=== PATIENT | female | born 1990 | race African-American/Black ===

== ENCOUNTER 2016-05-20 09:23 | Emergency (ER) | payer BC ==
--- NOTE | 2016-05-20 10:23 | ER Document Report ---
ED Oral Problem - General Mode of Arrival: Ambulatory Information source: Patient TRAVEL OUTSIDE OF THE [place] IN LAST 30 DAYS: No - HPI Patient complains to provider of: Swelling of face Onset: This morning Quality of pain: Achy Context: Fractured tooth Associated symptoms: None - General Chief Complaint: Facial Swelling Stated Complaint: FACIAL SWELLING Notes: Patient is a 26 year old female that presents to the emergency department today with complaints of right sided facial swelling. Patient states she woke up this morning and noticed the swelling. Patient states she believes she may have a bad tooth. Patient states she is not having difficulty handling her secretions and she is able to swallow without difficulty. (GIANFRANCO ATKINS) - Related Data Allergies/Adverse Reactions: hydrocodone bitartrate [From Vicodin] Allergy (Verified 05/20/16 09:24) Past Medical History - General Information source: Patient - Social History Smoking Status: Current Every Day Smoker Cigarette use (# per day): Yes Frequency of alcohol use: Occasional Drug Abuse: None Lives with: Parents Family History: Arthritis, CVA, DM, Hypertension Patient has suicidal ideation: No Patient has homicidal ideation: No Musculoskeltal Medical History: Reports Hx Musculoskeletal Deformity, Reports Hx Musculoskeletal Trauma Skin Medical History: Reports Hx Cellulitis Surgical Hx: Negative - Immunizations Immunizations up to date: Yes Hx Diphtheria, Pertussis, Tetanus Vaccination: Yes Review of Systems - Review of Systems Constitutional: denies: Fever EENT: See HPI, Mouth pain, Mouth swelling, Dental problem. denies: Difficulty swallowing Cardiovascular: No symptoms reported Respiratory: No symptoms reported Gastrointestinal: No symptoms reported Genitourinary: No symptoms reported Female Genitourinary: No symptoms reported Musculoskeletal: No symptoms reported Skin: No symptoms reported Hematologic/Lymphatic: No symptoms reported Neurological/Psychological: No symptoms reported -: Yes All other systems reviewed and negative Physical Exam - General General appearance: Appears well, Alert In distress: None - HEENT Head: Normocephalic, Atraumatic Eyes: Normal Conjunctiva: Normal Extraocular movements intact: Yes Teeth diagram: 1 - Fractured teeth #2-3, pain with palpation with surrounding erythema and swelling Pharynx: No: Peritonsillar abscess, Retropharyngeal abscess, Potential airway comprom. - Respiratory Respiratory status: No respiratory distress - Cardiovascular Rhythm: Regular - Abdominal Inspection: Normal Distension: No distension - Extremities General upper extremity: Normal inspection, Nontender. No: Edema General lower extremity: Normal inspection, Nontender. No: Edema - Neurological Neuro grossly intact: Yes Cognition: Normal Orientation: AAOx4 Speech: Normal - Psychological Associated symptoms: Normal affect, Normal mood - Skin Skin Temperature: Warm Skin Moisture: Dry Skin Color: Normal - Vital signs Vitals: Temp Pulse Resp BP Pulse Ox 98.8 F 85 18 148/101 H 100 05/20/16 09:28 05/20/16 09:28 05/20/16 09:28 05/20/16 09:28 05/20/16 09:28 (LISANDRO FINNEY) (GIANFRANCO ATKINS) Course - Re-evaluation Re-evalutation: 05/20/16 10:24 The right upper first and second molars are severely decayed and broken off up above the gumline. The right upper second molar is quite tender to percuss. There is some swelling of the gum around these were decayed and broken off teeth. There is no sign of abscess. The right maxillary face is swollen, a little indurated and tender to palpate. There is no palpable abscess. (LISANDRO FINNEY) - Vital Signs Vital signs: Temp Pulse Resp BP Pulse Ox 97.3 F 77 16 124/63 100 05/20/16 10:34 05/20/16 10:34 05/20/16 10:34 05/20/16 10:34 05/20/16 10:34 (LISANDRO FINNEY) (GIANFRANCO ATKINS) Scribe Documentation - Scribe Written by Scribe:: Sam Em, 05/20/16 1103 acting as scribe for :: [employer]
[2016-05-20 10:37] VITALS: BP 124/63
== END 2016-05-20 10:37 | disposition home or self-care (01) ==
LOC: ER 09:23
DX: K04.7 Periapical abscess without sinus (principal); K02.9 Dental caries, unspecified; F17.210 Nicotine dependence, cigarettes, uncomplicated
CPT/HCPCS: 99283

== ENCOUNTER 2016-10-14 11:53 | Emergency (ER) | payer BC ==
--- NOTE | 2016-10-14 12:30 | ER Document Report ---
ED Medical Screen (RME) - General Chief Complaint: Headache Stated Complaint: HEADACHE Time Seen by Provider: 10/14/16 12:17 Notes: Is a 26-year-old female presenting to the emergency department for a headache, dizziness, and toothache. Patient states her headache started Thursday at 15:00. Patient states her headache was worse yesterday morning when she go up and has continued into today. Patient states she got very dizzy at work and she had a nose bleed from her left nostril. Patient states it is very unusual for her to get a headache and that this headache is very severe. Patient states her head hurts in her neck, eyes, and all over her head. Patient also has some photophobia. Patient also has pain to her teeth on the left side. I have greeted and performed a rapid initial assessment of this patient. A comprehensive ED assessment and evaluation of the patient, analysis of test results and completion of the medical decision making process will be conducted by additional ED providers. TRAVEL OUTSIDE OF THE [place] IN LAST 30 DAYS: No - Related Data Allergies/Adverse Reactions: hydrocodone bitartrate [From Vicodin] Allergy (Verified 10/14/16 12:12) Past Medical History Renal/ Medical History: Denies: Hx Peritoneal Dialysis Musculoskeltal Medical History: Reports Hx Musculoskeletal Deformity, Reports Hx Musculoskeletal Trauma Skin Medical History: Reports Hx Cellulitis - Immunizations Immunizations up to date: Yes Hx Diphtheria, Pertussis, Tetanus Vaccination: Yes Physical Exam - Vital signs Vitals: Temp Pulse Resp BP Pulse Ox 98.4 F 69 16 156/79 H 100 10/14/16 12:08 10/14/16 12:08 10/14/16 12:08 10/14/16 12:08 10/14/16 12:08 - Notes Notes: GENERAL: Alert, interacts well. No acute distress. HEAD: Normocephalic, atraumatic. EYES: PERRL. ENT: Oral mucosa moist, tongue midline, no oral abscess. Nares patent, inflammation of the left nasal mucosa. LUNGS: Clear to auscultation bilaterally, no wheezes, rales, or rhonchi. No respiratory distress. HEART: Regular rate and rhythm. No murmurs, gallops, or rubs. NEUROLOGICAL: Alert and oriented x3. Normal speech. Gait intact, no gross deficits. Course - Vital Signs Vital signs: Temp Pulse Resp BP Pulse Ox 98.4 F 69 16 156/79 H 100 10/14/16 12:08 10/14/16 12:08 10/14/16 12:08 10/14/16 12:08 10/14/16 12:08 Scribe Documentation - Scribe Written by Scribe:: Sam Jay, 10/14/16 12:32 acting as scribe for :: Primit[employer]
[2016-10-14 12:48] LABS: ABSOLUTE LYMPHOCYTES (AUTO) 1.3 10^3/uL (0.5-4.7); ABSOLUTE MONOCYTES (AUTO) 0.3 10^3/uL (0.1-1.4); ABSOLUTE NEUT (AUTO) 5.9 10^3/uL (1.7-8.2); BASOPHILS % (AUTO) 0.6 % (0-2); EOSINOPHILS % (AUTO) 0.5 % (0-6); HEMATOCRIT 39.5 % (36.0-47.0); HEMOGLOBIN 12.9 g/dL (12.0-15.5); HGB HCT DIFFERENCE -0.8; LYMPHOCYTES % (AUTO) 17.7 % (13-45); MEAN CORPUSCULAR HEMOGLOBIN 30.3 pg (27.0-33.4); MEAN CORPUSCULAR HGB CONC 32.7 g/dL (32.0-36.0); MEAN CORPUSCULAR VOLUME 93 fl (80-97); MONOCYTES % (AUTO) 4.3 % (3-13); RED BLOOD COUNT 4.26 10^6/uL (3.72-5.28); RED CELL DISTRIBUTION WIDTH 12.5 % (11.5-14.0); SEGMENTED NEUTROPHILS % (AUTO) 76.9 % (42-78); WHITE BLOOD COUNT 7.6 10^3/uL (4.0-10.5)
--- NOTE | 2016-10-14 12:57 | RADIOLOGY REPORT (SQ) ---
EXAM DESCRIPTION: CT HEAD WITHOUT COMPLETED DATE/TIME: 10/14/2016 12:49 pm REASON FOR STUDY: PITTS COMPARISON: None. TECHNIQUE: Axial images acquired through the brain without intravenous contrast. Images reviewed wi th bone, brain and subdural windows. Images stored on PACS. All CT scanners at this facility use dose modulation, iterative reconstruction, and/or weight based d osing when appropriate to reduce radiation dose to as low as reasonably achievable (ALARA). [facility]: Dose Right [facility]: CareDose [facility]: Dose Right [facility]: Teradose 4D [facility]: Z2 RADIATION DOSE: 64.61 mGy. LIMITATIONS: None. FINDINGS: VENTRICLES: Normal size and contour. CEREBRUM: No masses. No hemorrhage. No midline shift. Normal elizabeth/white matter differentiation. N o evidence for acute infarction. CEREBELLUM: No masses. No hemorrhage. No alteration of density. No evidence for acute infarction. Low lying cerebellar tonsils at the foramen magnum on axial image 7, an anatomic variant EXTRAAXIAL SPACES: No fluid collections. No masses. ORBITS AND GLOBE: No intra- or extraconal masses. Normal contour of globe without masses. CALVARIUM: No fracture. PARANASAL SINUSES: No fluid or mucosal thickening. SOFT TISSUES: No mass or hematoma. OTHER: No other significant finding. IMPRESSION: NORMAL BRAIN CT WITHOUT CONTRAST. TECHNICAL DOCUMENTATION: JOB ID: [id number] Quality ID # [id number]: Final reports with documentation of one or more dose reduction techniques (e.g., Au tomated exposure control, adjustment of the mA and/or kV according to patient size, use of iterative reconstruction technique) 2010 [employer]- All Rights Reserved
[2016-10-14 13:13] LABS: ANION GAP 11 (5-19); BLOOD UREA NITROGEN 9 mg/dL (7-20); CALCIUM 9.8 mg/dL (8.4-10.2); CARBON DIOXIDE 28 mmol/L (22-30); CHLORIDE 104 mmol/L (98-107); CREATININE RESULT 0.58 mg/dL (0.52-1.25); GLUCOSE 85 mg/dL (75-110); POTASSIUM 4.3 mmol/L (3.6-5.0)
[2016-10-14] MEDS ORDERED: NORMAL SALINE 1000 ML 1,000 ML IV ONE (13:42)
[2016-10-14] MEDS ORDERED: PROCHLORPERAZINE EDISYLATE INJ 10 MG/2 ML VIAL IV ONE (13:43)
[2016-10-14] MEDS ORDERED: KETOROLAC TROMETHAMINE INJ/PF 30 MG/1 ML SDV IV ONE (13:43)
--- NOTE | 2016-10-14 15:10 | ER Document Report ---
ED Headache - General Chief Complaint: Headache Stated Complaint: HEADACHE Time Seen by Provider: 10/14/16 12:17 Mode of Arrival: Ambulatory Information source: Patient Notes: Patient is a 26-year-old -[place] female who presents to the ER today for a migraine 2 days. Patient states that she is light and sound sensitive, has sharp shooting pains behind both of her eyes and also tooth pain on the left side of her mouth. She cannot tell me if this tooth pain is upper or lower tooth pain or when it began. She denies any history of migraines, but states "I get headaches a lot." She has not taken anything at home for any of this pain she states. She denies any fever, chills, blurred vision, neck pain, back pain, dysuria. TRAVEL OUTSIDE OF THE [place] IN LAST 30 DAYS: No - Related Data Allergies/Adverse Reactions: hydrocodone bitartrate [From Vicodin] Allergy (Verified 10/14/16 12:12) Past Medical History - General Information source: Patient - Social History Smoking Status: Never Smoker Chew tobacco use (# tins/day): No Frequency of alcohol use: Occasional Drug Abuse: None Family History: Arthritis, CVA, DM, Hypertension Patient has suicidal ideation: No Patient has homicidal ideation: No Renal/ Medical History: Denies: Hx Peritoneal Dialysis Musculoskeltal Medical History: Reports Hx Musculoskeletal Deformity, Reports Hx Musculoskeletal Trauma Skin Medical History: Reports Hx Cellulitis Surgical Hx: Negative - Immunizations Immunizations up to date: Yes Hx Diphtheria, Pertussis, Tetanus Vaccination: Yes Review of Systems - Review of Systems Constitutional: No symptoms reported EENT: See HPI Cardiovascular: No symptoms reported Respiratory: No symptoms reported Gastrointestinal: No symptoms reported Genitourinary: No symptoms reported Female Genitourinary: No symptoms reported Musculoskeletal: No symptoms reported Skin: No symptoms reported Hematologic/Lymphatic: No symptoms reported Neurological/Psychological: See HPI Physical Exam - Vital signs Vitals: Temp Pulse Resp BP Pulse Ox 98.4 F 69 16 156/79 H 100 10/14/16 12:08 10/14/16 12:08 10/14/16 12:08 10/14/16 12:08 10/14/16 12:08 - Notes Notes: PHYSICAL EXAMINATION: GENERAL: Well-appearing and in no acute distress. HEAD: Atraumatic, normocephalic. EYES: Pupils equal round and reactive to light, extraocular movements intact, sclera anicteric, conjunctiva are normal. NECK: Normal range of motion, supple without lymphadenopathy LUNGS: CTAB and equal. No wheezes rales or rhonchi. HEART: Regular rate and rhythm without murmurs EXTREMITIES: Normal range of motion, no pitting edema. No cyanosis. NEUROLOGICAL: Cranial nerves grossly intact. Normal sensory/motor exams. PSYCH: Normal mood, normal affect. SKIN: Warm, Dry, normal turgor, no rashes or lesions noted Course - Re-evaluation Re-evalutation: 10/14/16 15:22 Patient felt much better after Toradol, Compazine and IV fluids and wanted to go home. 10/14/16 17:48 - Vital Signs Vital signs: Temp Pulse Resp BP Pulse Ox 97.9 F 74 16 119/58 L 100 10/14/16 15:50 10/14/16 15:50 10/14/16 15:50 10/14/16 15:50 10/14/16 15:50 - Laboratory Result Diagrams: 10/14/16 12:35 10/14/16 12:35 Discharge - Discharge Clinical Impression: Tooth pain Headache Qualifiers: Headache type: unspecified Headache chronicity pattern: acute headache Intractability: not intractable Qualified Code(s): R51 - Headache Condition: Stable Disposition: HOME, SELF-CARE Instructions: Intravenous Compazine for Headaches ([facility]) Additional Instructions: Return immediately for any new or worsening symptoms. Follow up with primary care provider, call tomorrow to make followup appointment. Prescriptions: Naproxen 500 mg PO QID PRN #15 tablet PRN Reason:
[2016-10-14] MEDS ORDERED: SUMATRIPTAN SUCCINATE 50 MG TABLET PO ONE (15:26)
[2016-10-14 15:58] VITALS: BP 119/58
== END 2016-10-14 15:59 | disposition home or self-care (01) ==
LOC: ER 11:53
DX: R51 Headache (principal); K08.89 Other specified disorders of teeth and supporting structures
CPT/HCPCS: 99284; 96374; 96375; 36415; 85025; 80048; 70450; J1885; J0780; J7030

== ENCOUNTER 2017-08-24 00:02 | Emergency (ER) | payer BC ==
[2017-08-24] MEDS ORDERED: NAPROXEN 250 MG TABLET PO ONE (00:19)
--- NOTE | 2017-08-24 00:40 | ER Document Report ---
ED General - General Chief Complaint: Shoulder Pain Stated Complaint: SHOULDER PAIN/INJURY Time Seen by Provider: 08/24/17 00:14 TRAVEL OUTSIDE OF THE [place] IN LAST 30 DAYS: No - HPI Notes: 27-year-old female with a history of chronic intermittent right shoulder dislocation presents with "I think I dislocated my shoulder". Patient states earlier today, late morning, she thinks she spontaneously dislocated her shoulder and was able to relocate it. Since she has had constant at times sharp at times achy pain in her right upper extremity and shoulder. No numbness or tingling. She has not sought professional evaluation for her chronic re-dislocations. Sudden onset, nonradiating except as described. No other modifying factors, no other associated symptoms, no other provocative or palliative factors. - Related Data Allergies/Adverse Reactions: hydrocodone bitartrate [From Vicodin] Allergy (Verified 10/14/16 12:12) Past Medical History - Social History Smoking Status: Never Smoker Family History: Arthritis, CVA, DM, Hypertension Patient has suicidal ideation: No Patient has homicidal ideation: No - Medical History Medical History: Other - Includes intermittent right shoulder dislocation Renal/ Medical History: Denies: Hx Peritoneal Dialysis Musculoskeltal Medical History: Reports Hx Musculoskeletal Deformity, Reports Hx Musculoskeletal Trauma Skin Medical History: Reports Hx Cellulitis - Immunizations Immunizations up to date: Yes Hx Diphtheria, Pertussis, Tetanus Vaccination: Yes Review of Systems - Review of Systems Notes: Review of systems as in history of present illness, otherwise no significant headache, chest pain, abdominal pain. Physical Exam - Notes Notes: General: Well devloped, no acute distress. HEENT: Normocephalic, atraumatic. Pupils equal round reactive to light. Mucosa moist. No JVD. Chest: No trauma, normal excursion. Respiratory: Good air exchange, normal excursion. Cardiac: Regular rhythm Abdomen: Soft, benign. Nondistended. Back: No asymmetry or gross abnormality. Motor: Grossly normal power and tone. Except as described. Neurologic: Alert, nonfocal. Vascular: Well perfused Skin: No petechiae or purpura Extremities: Mild anterolateral tenderness the right shoulder. Range of motion limited somewhat by pain. Normal neurovascular exam. Deltoid sensation is intact and symmetric. Course - Re-evaluation Re-evalutation: 08/24/17 00:45 27-year-old female with recurrent shoulder dislocations, appears to have relocated herself earlier today. I will obtain plain films to evaluate for underlying bony injury or fracture. Treat pain, reassess. Marty films show no evidence of acute bony injury. Patient is discharged home and referred to orthopedic surgery for definitive evaluation, placed in a sling and swath, given a prescription for analgesics. Discharge - Discharge Clinical Impression: Shoulder dislocation Qualifiers: Encounter type: initial encounter Laterality: right Qualified Code(s): S43.004A - Unspecified dislocation of right shoulder joint, initial encounter Condition: Good Disposition: HOME, SELF-CARE Instructions: Shoulder Dislocation ([facility]) Prescriptions: Naproxen 500 mg PO Q12 PRN #12 tablet PRN Reason: Referrals: TITO JAY DO [ACTIVE STAFF] - Follow up as needed
[2017-08-24 00:48] VITALS: BP 125/76
--- NOTE | 2017-08-24 01:05 | RADIOLOGY REPORT (SQ) ---
EXAM DESCRIPTION: SHOULDER RIGHT 2 OR MORE VIEWS CLINICAL HISTORY: 27 years, Female, pain s/p injury COMPARISON: None. NUMBER OF VIEWS: 3 Findings: Bones, joints, and soft tissues of SHOULDER RIGHT appear intact. IMPRESSION: No acute findings.
== END 2017-08-24 00:54 | disposition home or self-care (01) ==
LOC: ER 00:02
DX: M24.411 Recurrent dislocation, right shoulder (principal)
CPT/HCPCS: 99283

== ENCOUNTER 2018-05-24 22:36 | Emergency (ER) | payer BC ==
[2018-05-24] MEDS ORDERED: ONDANSETRON HCL INJ/PF 4 MG/2 ML SDV IV ONE (23:54)
[2018-05-24] MEDS ORDERED: NORMAL SALINE 1000 ML 1,000 ML IV ONE (23:54)
[2018-05-25 00:31] LABS: ABSOLUTE EOSINOPHILS # (AUTO) 0.1 10^3/uL (0.0-0.6); ABSOLUTE LYMPHOCYTES (AUTO) 2.5 10^3/uL (0.5-4.7); ABSOLUTE MONOCYTES (AUTO) 0.6 10^3/uL (0.1-1.4); ABSOLUTE NEUT (AUTO) 4.9 10^3/uL (1.7-8.2); BASOPHILS % (AUTO) 0.3 % (0-2); HEMOGLOBIN 12.1 g/dL (12.0-15.5); LYMPHOCYTES % (AUTO) 30.5 % (13-45); MEAN CORPUSCULAR HEMOGLOBIN 31.6 pg (27.0-33.4); MEAN CORPUSCULAR HGB CONC 34.6 g/dL (32.0-36.0); MEAN CORPUSCULAR VOLUME 91 fl (80-97); MONOCYTES % (AUTO) 7.5 % (3-13); PLATELET COUNT 249 10^3/uL (150-450); RED BLOOD COUNT 3.84 10^6/uL (3.72-5.28); RED CELL DISTRIBUTION WIDTH 12.7 % (11.5-14.0); SEGMENTED NEUTROPHILS % (AUTO) 60.7 % (42-78); TOTAL CELLS COUNTED % (AUTO) 100 %; WHITE BLOOD COUNT 8.1 10^3/uL (4.0-10.5)
[2018-05-25 00:40] LABS: ALANINE AMINOTRANSFERASE 26 U/L (9-52); ALBUMIN 4.5 g/dL (3.5-5.0); ALKALINE PHOSPHATASE 48 U/L (38-126); ANION GAP 8 (5-19); ASPARTATE AMINO TRANSFERASE 16 U/L (14-36); BILIRUBIN,DIRECT 0.2 mg/dL (0.0-0.4); BILIRUBIN,TOTAL 0.5 mg/dL (0.2-1.3); BLOOD UREA NITROGEN 6 mg/dL (7-20); CALCIUM 9.5 mg/dL (8.4-10.2); CARBON DIOXIDE 25 mmol/L (22-30); CHLORIDE 103 mmol/L (98-107); GLUCOSE 83 mg/dL (75-110); LIPASE 49.2 U/L (23-300); POTASSIUM 4.5 mmol/L (3.6-5.0); SODIUM 136.2 mmol/L (137-145); TOTAL PROTEIN 7.5 g/dL (6.3-8.2)
--- NOTE | 2018-05-25 01:24 | RADIOLOGY REPORT (SQ) ---
EXAM DESCRIPTION: US TRANSVAGINAL COMPLETED DATE/TME: 05/24/2018 23:54 EXAM DESCRIPTION:Transvaginal pelvic ultrasound CLINICAL HISTORY:28 years Female, vag bleeding COMPARISON:None. TECHNIQUE: Grayscale and Doppler sonogram of the pelvis. Transvaginal technique was used for better evaluation of the pelvic viscera FINDINGS: The uterus measures 10.1 x 7.5 x 5.6 cm. A gestational sac is visualized. pole and yolk sac are also present. Estimated gestational age is six weeks four days by current ultrasound. Estimated date of delivery is January 14, 2019. cardiac activity is measured at 124 bpm. The cervix measures 3.1 cm in length. There is trace fluid or possibly a nabothian cyst noted in the cervix on the longitudinal view. Right ovary: Not visualized due to intervening bowel gas. Left ovary: Measures 2.5 x 2.1 x 1.4 cm. Normal doppler flow. No mass lesion. Free fluid: None. IMPRESSION: Single live intrauterine .
--- NOTE | 2018-05-25 02:15 | ER Document Report ---
ED General - General Chief Complaint: Nausea/Vomiting Stated Complaint: NAUSEA/VOMITTING Time Seen by Provider: 05/24/18 23:43 Notes: Patient is a 28-year-old female presents to the emergency department complaining of generalized intermittent upper abdominal pain along with nausea and vomiting. Patient denies any blood in her emesis or any diarrhea. Patient stated she has had 2 episodes of vomiting "every day since I found out I was ." Patient states any different smells makes her very nauseated and she feels as though at times she is going to pass out which is why she presents to the emergency room. Patient states 4 days ago she did have some vaginal bleeding, states it was bright red in nature and was when she wiped after urinating. Patient denies any other episodes of vaginal bleeding since. Past medical history: None Medications: Allergies: Vicodin TRAVEL OUTSIDE OF THE [place] IN LAST 30 DAYS: No - Related Data Allergies/Adverse Reactions: hydrocodone bitartrate [From Vicodin] Allergy (Verified 10/14/16 12:12) Past Medical History - General Information source: Patient - Social History Smoking Status: Former Smoker Chew tobacco use (# tins/day): No Frequency of alcohol use: None Drug Abuse: None Family History: Arthritis, CVA, DM, Hypertension Patient has suicidal ideation: No Patient has homicidal ideation: No Renal/ Medical History: Denies: Hx Peritoneal Dialysis Musculoskeletal Medical History: Reports Hx Musculoskeletal Deformity, Reports Hx Musculoskeletal Trauma Skin Medical History: Reports Hx Cellulitis - Immunizations Immunizations up to date: Yes Hx Diphtheria, Pertussis, Tetanus Vaccination: Yes Review of Systems - Review of Systems Constitutional: No symptoms reported EENT: No symptoms reported Cardiovascular: No symptoms reported Respiratory: No symptoms reported Gastrointestinal: See HPI Genitourinary: See HPI Female Genitourinary: See HPI Musculoskeletal: No symptoms reported Skin: No symptoms reported Hematologic/Lymphatic: No symptoms reported Neurological/Psychological: No symptoms reported Physical Exam - Vital signs Vitals: Temp Pulse Resp BP Pulse Ox 99.1 F 70 16 129/82 H 100 05/24/18 22:40 05/24/18 22:40 05/24/18 22:40 05/24/18 22:40 05/24/18 22:40 - Notes Notes: GENERAL: Alert, interacts well. No acute distress. HEAD: Normocephalic, atraumatic. EYES: Pupils equal, round, and reactive to light. Extraocular movements intact. ENT: Oral mucosa moist, tongue midline. NECK: Full range of motion. Supple. Trachea midline. LUNGS: Clear to auscultation bilaterally, no wheezes, rales, or rhonchi. No respiratory distress. HEART: Regular rate and rhythm. No murmur ABDOMEN: Soft, Non-distended. Bowel sounds present in all 4 quadrants. No McBur jenni's point tenderness, no Olivares sign noted. Patient does have generalized epigastric and left upper abdominal pain upon palpation. No right or left pelvic pain or suprapubic pain noted EXTREMITIES: Moves all 4 extremities spontaneously. No edema, normal radial and dorsalis pedis pulses bilaterally. No cyanosis. BACK: no cervical, thoracic, lumbar midline tenderness. No saddle anesthesia, normal distal neurovascular exam. No CVA tenderness bilaterally NEUROLOGICAL: Alert and oriented x3. Normal speech. cranial nerves II through XII grossly intact PSYCH: Normal affect, normal mood. SKIN: Warm, dry, normal turgor. No rashes or lesions noted. Course - Re-evaluation Re-evalutation: 05/25/18 02:14 Patient's ultrasound did show an IUP measuring 6 weeks and 4 days with a heart rate of 124. [place] [address]. Her labs show no signs of leukocytosis, no signs of anemia. Patient's labs did reveal a sodium of 136.2 which was treated with normal saline solution in the emergency room. Patient stated after administration of Zofran she was no longer nauseated and was actually feeling hungry. Discussed use of Unisom and vitamin B6 [id number] for generalized nausea. Discussed also following up with [facility] for continued care and treatment of her nausea. 05/25/18 02:34 Patient's urine does show a specific gravity of 1.021, no signs of urinary tract infection. Patient was treated with normal saline solution in the ED. - Vital Signs Vital signs: Temp Pulse Resp BP Pulse Ox 99.1 F 70 14 102/70 100 05/24/18 22:40 05/24/18 22:40 05/25/18 01:49 05/25/18 01:49 05/25/18 01:49 - Laboratory Result Diagrams: 05/24/18 23:59 05/24/18 23:59 Laboratory results interpreted by me: 05/24/18 05/24/18 05/25/18 23:59 23:59 00:44 Hct 35.0 L Sodium 136.2 L BUN 6 L Creatinine 0.46 L Beta HCG, Quant 10439.00 H Urine Ketones TRACE H Discharge - Discharge Clinical Impression: Vaginal bleeding Vomiting Qualifiers: Vomiting type: unspecified Vomiting Intractability: non-intractable Nausea presence: with nausea Qualified Code(s): R11.2 - Nausea with vomiting, unspecified Qualifiers: Weeks of gestation: less than 8 weeks Qualified Code(s): Z3A.01 - Less than 8 weeks gestation of Condition: Stable Disposition: HOME, SELF-CARE Instructions: Intravenous (IV) Fluids ([facility]), Vomiting ([facility]) Additional Instructions: As we discussed you have been seen and treated in the emergency department for your generalized vaginal bleeding during and nausea and vomiting. Please use B6 and Unisom as I have dictated to you in your paperwork. Please also try to stay well-hydrated and follow-up with [facility], or women's health. Please return to the emergency room for any other concerning symptoms. Referrals: [facility] [Provider Group] - Follow up as needed [facility] [Provider Group] - Follow up as needed
[2018-05-25 02:18] LABS: APPEARANCE,URINE SLIGHTLY-CLOUDY; BILIRUBIN,URINE NEGATIVE (NEGATIVE); COLOR,URINE YELLOW; GLUCOSE, URINE NEGATIVE (NEGATIVE); KETONES,URINE TRACE mg/dL (NEGATIVE); LEUKOCYTE ESTERASE,URINE NEGATIVE (NEGATIVE); NITRITE,URINE NEGATIVE (NEGATIVE); PROTEIN,URINE NEGATIVE (NEGATIVE); URINE SPECIFIC GRAVITY 1.021; UROBILINOGEN,URINE NEGATIVE mg/dL (<2.0)
[2018-05-25 02:53] VITALS: BP 116/59
== END 2018-05-25 03:00 | disposition home or self-care (01) ==
LOC: ER 22:36
DX: O21.9 Vomiting of pregnancy, unspecified (principal); O20.9 Hemorrhage in early pregnancy, unspecified; R10.10 Upper abdominal pain, unspecified; Z3A.01 Less than 8 weeks gestation of pregnancy
CPT/HCPCS: 99284; 96361; 96374; 86900; 86901; 36415; 84702; 83690; 85025; 80053; 81001; 76817; 93976; J2405; J7030

== ENCOUNTER 2018-05-27 14:14 | Emergency (ER) | payer BC ==
[2018-05-27] MEDS ORDERED: ONDANSETRON HCL INJ/PF 4 MG/2 ML SDV IV ONE (15:35)
--- NOTE | 2018-05-27 15:37 | ER Document Report ---
ED General - General Chief Complaint: Nausea/Vomiting Stated Complaint: VOMITING Time Seen by Provider: 05/27/18 15:34 TRAVEL OUTSIDE OF THE [place] IN LAST 30 DAYS: No - HPI Notes: Patient is a 28-year-old female approximately 7 weeks who presents to the emergency department for nausea and vomiting over the last 2 days. Patient was here a few days ago for similar symptoms and had an unrem arkable workup at that time. Patient was at her first C WINFORMS DEVELOPER appointment when she threw up and they told her just to come here for fluids and to check her electrolytes. Patient states that she has had continued nausea and vomiting without any hematemesis. She is urinating normally and having normal bowel movements. She has not had any other vaginal discharge, odor, or bleeding. Patient states that aside from the nausea and vomiting she feels well and without any pain precipitating. Denies any headache, fever, neck pain, URI, sore throat, chest pain, palpitations, syncope, cough, shortness of breath, wheeze, dyspnea, abdominal pain, diarrhea, urinary retention, dysuria, hematuria, back pain, or rash. - Related Data Allergies/Adverse Reactions: hydrocodone bitartrate [From Vicodin] Allergy (Verified 05/27/18 14:15) Past Medical History - Social History Smoking Status: Never Smoker Family History: Arthritis, CVA, DM, Hypertension Renal/ Medical History: Denies: Hx Peritoneal Dialysis Musculoskeletal Medical History: Reports Hx Musculoskeletal Deformity, Reports Hx Musculoskeletal Trauma Skin Medical History: Reports Hx Cellulitis - Immunizations Immunizations up to date: Yes Hx Diphtheria, Pertussis, Tetanus Vaccination: Yes Review of Systems - Review of Systems -: Yes All other systems reviewed and negative Physical Exam - Vital signs Vitals: Temp Pulse Resp BP Pulse Ox 98.8 F 85 14 125/71 100 05/27/18 14:27 05/27/18 14:27 05/27/18 14:27 05/27/18 14:27 05/27/18 14:27 - Notes Notes: PHYSICAL EXAMINATION: GENERAL: Well-appearing, well-nourished and in no acute distress. HEAD: Atraumatic, normocephalic. EYES: Pupils equal round and reactive to light, extraocular movements intact, sclera anicteric, conjunctiva are normal. ENT: Nares patent and without discharge. oropharynx clear without exudates. No tonsilar hypertrophy or erythema. Moist mucous membranes. NECK: Normal range of motion, supple without lymphadenopathy LUNGS: Breath sounds clear to auscultation bilaterally and equal. No wheezes rales or rhonchi. HEART: Regular rate and rhythm without murmurs, rubs, gallops. ABDOMEN: Soft, nontender, nondistended abdomen. No guarding, no rebound. No masses appreciated. Normal bowel sounds present. No CVA tenderness bilaterally. Musculoskeletal: FROM to passive/active. Strength 5+/5. Extremities: No cyanosis, clubbing, or edema b/l. Peripheral pulses 2+. Cap illary refill less than 3 seconds. NEUROLOGICAL: Normal speech, normal gait. PSYCH: Normal mood, normal affect. SKIN: Warm, Dry, normal turgor, no rashes or lesions noted. Course - Re-evaluation Re-evalutation: 05/27/18 19:52 Patient is an afebrile, well-hydrated, 28-year-old female who presents emergency department with nausea and vomiting in the setting of being approximately 7 weeks . Vitals are acceptable without any significant tachycardia, tachypnea, or hypoxia. PE is otherwise unremarkable. Patient's abdomen is soft nontender. She has not had any episodes of emesis throughout her stay. She is nontoxic-appearing and is able to tolerate p.o. without difficulty at this time. CBC, CMP, hCG, urinalysis unremarkable. No further labs or imaging warranted. Low suspicion/risk for acute appendicitis, bowel obstruction, acute cholecystitis, acute cholangitis, perforated diverticulitis, incarcerated alonso ia, pancreatitis, perforated ulcer, peritonitis, sepsis, pelvic inflammatory disease, or other systemic emergent condition at this time. Patient is aware that her condition can change from initial presentation and she needs to monitor symptoms closely and seek medical attention if any acute changes. I will send her home with a prescription for Zofran. Conservative measures otherwise for symptoms. Recheck with your PCM/C WINFORMS DEVELOPER in 2-3 days. Return to the ED with any worsening/concerning symptoms otherwise as reviewed in discharge. Patient is in agreement. - Vital Signs Vital signs: Temp Pulse Resp BP Pulse Ox 98.8 F 85 14 125/71 100 05/27/18 14:27 05/27/18 14:27 05/27/18 14:27 05/27/18 14:27 05/27/18 14:27 - Laboratory Result Diagrams: 05/27/18 15:54 05/27/18 17:20 Laboratory results interpreted by me: 05/27/18 05/27/18 15:58 17:20 Sodium 136.6 L Creatinine 0.46 L Beta HCG, Quant 55585.00 H Urine Ketones 80 H Urine Urobilinogen 4.0 H Ur Leukocyte Esterase TRACE H Urine Ascorbic Acid 40 H Discharge - Discharge Clinical Impression: Nausea and vomiting Qualifiers: Vomiting type: unspecified Vomiting Intractability: non-intractable Qualified Code(s): R11.2 - Nausea with vomiting, unspecified Condition: Stable Disposition: HOME, SELF-CARE Additional Instructions: Maintain adequate fluid and food intake [place] diet (B.R.A.T.) Bananas, rice, apples, toast, etc Zofran as needed tylenol if needed Monitor for any worsening symptoms Make sure you are staying hydrated enough to urinate and have normal BM's Recheck with your PCM/OBGYN in 2-3 days Return to the ED with any worsening symptoms and/or development of fever, headache, chest pain, palpitations, syncope, shortness of breath, trouble breathing, abdominal pain, n/v/d, blood in stool/urine, weakness, or other worsening symptoms that are concerning to you. Prescriptions: Ondansetron [Zofran Odt 4 mg Tablet] 1 - 2 tab PO Q4H PRN #15 tab.rapdis PRN Reason: For Nausea/Vomiting Referrals: [facility] [Provider Group] - Follow up as needed
[2018-05-27] MEDS: NORMAL SALINE 1000 ML 1,000 ML IV PRN ×2 (15:56→17:32)
[2018-05-27 16:09] LABS: ABSOLUTE LYMPHOCYTES (AUTO) 1.7 10^3/uL (0.5-4.7); ABSOLUTE MONOCYTES (AUTO) 0.5 10^3/uL (0.1-1.4); ABSOLUTE NEUT (AUTO) 5.2 10^3/uL (1.7-8.2); BASOPHILS % (AUTO) 0.4 % (0-2); EOSINOPHILS % (AUTO) 0.2 % (0-6); HEMATOCRIT 36.8 % (36.0-47.0); HEMOGLOBIN 12.8 g/dL (12.0-15.5); LYMPHOCYTES % (AUTO) 22.8 % (13-45); MEAN CORPUSCULAR HEMOGLOBIN 31.6 pg (27.0-33.4); MEAN CORPUSCULAR HGB CONC 34.7 g/dL (32.0-36.0); MEAN CORPUSCULAR VOLUME 91 fl (80-97); MONOCYTES % (AUTO) 6.3 % (3-13); PLATELET COUNT 247 10^3/uL (150-450); RED BLOOD COUNT 4.03 10^6/uL (3.72-5.28); RED CELL DISTRIBUTION WIDTH 12.7 % (11.5-14.0); SEGMENTED NEUTROPHILS % (AUTO) 70.3 % (42-78); TOTAL CELLS COUNTED % (AUTO) 100 %; WHITE BLOOD COUNT 7.4 10^3/uL (4.0-10.5)
[2018-05-27 16:33] LABS: APPEARANCE,URINE SLIGHTLY-CLOUDY; BILIRUBIN,URINE NEGATIVE (NEGATIVE); COLOR,URINE YELLOW; GLUCOSE, URINE NEGATIVE (NEGATIVE); KETONES,URINE 80 mg/dL (NEGATIVE); LEUKOCYTE ESTERASE,URINE TRACE (NEGATIVE); NITRITE,URINE NEGATIVE (NEGATIVE); PROTEIN,URINE NEGATIVE (NEGATIVE); URINE SPECIFIC GRAVITY 1.025
[2018-05-27 18:43] LABS: ALANINE AMINOTRANSFERASE 15 U/L (9-52); ALBUMIN 4.1 g/dL (3.5-5.0); ALKALINE PHOSPHATASE 47 U/L (38-126); ANION GAP 8 (5-19); ASPARTATE AMINO TRANSFERASE 14 U/L (14-36); BILIRUBIN,DIRECT 0.3 mg/dL (0.0-0.4); BILIRUBIN,TOTAL 0.6 mg/dL (0.2-1.3); BLOOD UREA NITROGEN 7 mg/dL (7-20); CALCIUM 8.6 mg/dL (8.4-10.2); CARBON DIOXIDE 25 mmol/L (22-30); CHLORIDE 104 mmol/L (98-107); GLUCOSE 87 mg/dL (75-110); LIPASE 72.1 U/L (23-300); SODIUM 136.6 mmol/L (137-145); TOTAL PROTEIN 7.1 g/dL (6.3-8.2)
[2018-05-27] MEDS ORDERED: ONDANSETRON ODT 4 MG TAB (6 TAB/ER DISP) PO PRN (19:54)
[2018-05-27 20:29] VITALS: BP 131/59
== END 2018-05-27 20:31 | disposition home or self-care (01) ==
LOC: ER 14:14
DX: O21.9 Vomiting of pregnancy, unspecified (principal); Z3A.01 Less than 8 weeks gestation of pregnancy
CPT/HCPCS: 99283; 96361; 96374; 36415; 87086; 84702; 83690; 85025; 80053; 81001; J2405; J7030

== ENCOUNTER 2018-08-13 01:00 | Emergency (ER) | payer BC, MEDICAID ==
[2018-08-13 02:02] LABS: APPEARANCE,URINE CLOUDY; BILIRUBIN,URINE NEGATIVE (NEGATIVE); COLOR,URINE YELLOW; GLUCOSE, URINE NEGATIVE (NEGATIVE); KETONES,URINE NEGATIVE (NEGATIVE); LEUKOCYTE ESTERASE,URINE MODERATE (NEGATIVE); NITRITE,URINE NEGATIVE (NEGATIVE); PROTEIN,URINE NEGATIVE (NEGATIVE); URINE SPECIFIC GRAVITY 1.018
--- NOTE | 2018-08-13 02:56 | ER Document Report ---
ED General - General Chief Complaint: OB Problem (<20wks) Stated Complaint: VAGINAL PRESSURE Time Seen by Provider: 08/13/18 01:21 Primary Care Provider: BEV WILKINSON MD [Primary Care Provider] - Follow up as needed Notes: Patient is a 28-year-old female at 16 weeks by LMP who presents with 2-3 weeks of lower abdominal pressure, pelvic pressure, and vaginal heaviness. Patient also reports throbbing, aching pain to her bilateral low back. states that her symptoms started gradually, have been relatively constant since onset. Has not seen her ELECTROSTATIC PAINT OPERATOR regarding today's concerns. Denies a history of similar symptoms during her previous . States standing, walking or being active seems to worsen her symptoms. Has not trying to improve her symptoms. Does regard her symptoms as being moderate to severe. Fluctuating in nature. No trauma to the affected areas. Denies any dysuria, vaginal bleeding, vaginal discharge. TRAVEL OUTSIDE OF THE [place] IN LAST 30 DAYS: No - Related Data Allergies/Adverse Reactions: hydrocodone bitartrate [From Vicodin] Allergy (Verified 05/27/18 14:15) Past Medical History - General Information source: Patient - Social History Smoking Status: Never Smoker Frequency of alcohol use: None Drug Abuse: None Lives with: Spouse/Significant other Family History: Arthritis, CVA, DM, Hypertension Patient has suicidal ideation: No Patient has homicidal ideation: No Renal/ Medical History: Denies: Hx Peritoneal Dialysis Musculoskeletal Medical History: Reports Hx Musculoskeletal Deformity, Reports Hx Musculoskeletal Trauma Skin Medical History: Reports Hx Cellulitis - Immunizations Immunizations up to date: Yes Hx Diphtheria, Pertussis, Tetanus Vaccination: Yes Review of Systems - Review of Systems Notes: Constitutional: Negative for fever. HENT: Negative for sore throat. Eyes: Negative for visual changes. Cardiovascular: Negative for chest pain. Respiratory: Negative for shortness of breath. Gastrointestinal: Negative for abdominal pain, vomiting or diarrhea. Genitourinary: Positive for vaginal pressure negative for dysuria. Musculoskeletal: Positive for low back pain Skin: Negative for rash. Neurological: Negative for headaches, weakness or numbness. 10 point ROS negative except as marked above and in HPI. Physical Exam - Vital signs Vitals: Temp Pulse Resp BP Pulse Ox 98.7 F 71 22 H 132/70 H 100 08/13/18 01:09 08/13/18 01:09 08/13/18 01:09 08/13/18 01:09 08/13/18 01:09 Interpretation: Normal Notes: PHYSICAL EXAMINATION: GENERAL: Well-appearing, well-nourished and in no acute distress. HEAD: Atraumatic, normocephalic. EYES: Pupils equal round and reactive to light, extraocular movements intact, sclera anicteric, conjunctiva are normal. ENT: nares patent, oropharynx clear without exudates. Moist mucous membranes. NECK: Normal range of motion, supple without lymphadenopathy LUNGS: Breath sounds clear to auscultation bilaterally and equal. No wheezes rales or rhonchi. HEART: Regular rate and rhythm without murmurs ABDOMEN: Soft, gravid uterus, nontender, normoactive bowel sounds. No guarding, no rebound. No masses appreciated. EXTREMITIES: Normal range of motion, no pitting or edema. No cyanosis. Back: Midline spinal tenderness, step-offs or deformities NEUROLOGICAL: 5 out of 5 strength both distally and proximally bilateral lower extremities. 2+ patellar reflexes bilaterally. No clonus. Sensation grossly intact in the bilateral lower extremities. Patient is able to ambulate without difficulty. PSYCH: Normal mood, normal affect. SKIN: Warm, Dry, normal turgor, no rashes or lesions noted. Course - Re-evaluation Re-evalutation: 08/13/18 02:54 Patient presents with lower pelvic heaviness, vaginal pressure as well as low back discomfort that is been ongoing for several weeks during her . On exam the patient is well in appearance. Neurologic exam unremarkable without any red flag findings for low back discomfort. 5 out of 5 strength throughout. Bedside ultrasound demonstrates viable intrauterine , active movement. Urinalysis unremarkable without evidence of urinary tract infection. Abdominal exam benign. Suspect that patient's discomfort is likely secondary to her pelvis shifting in the context of a growing as well as possible sciatic nerve impingement. I have advised close outpatient follow-up with ELECTROSTATIC PAINT OPERATOR, acetaminophen as needed, strict return precautions. At this time will discharge with return precautions and follow-up recommendations. Verbal discharge instructions given a the bedside and opportunity for questions given. Medication warnings reviewed. Patient is in agreement with this plan and has verbalized understanding of return precautions and the need for primary care follow-up in the next 24-72 hours. - Vital Signs Vital signs: Temp Pulse Resp BP Pulse Ox 98.4 F 75 20 135/68 H 100 08/13/18 03:02 08/13/18 03:02 08/13/18 03:02 08/13/18 03:02 08/13/18 03:02 - Laboratory Laboratory results interpreted by me: 08/13/18 01:16 Urine Urobilinogen 2.0 H Ur Leukocyte Esterase MODERATE H Discharge - Discharge Clinical Impression: Vaginal discomfort, Second trimester Condition: Good Disposition: HOME, SELF-CARE Additional Instructions: You were seen for pelvic discomfort during . Your ultrasound and labs are normal today. The exact cause your pain is uncertain but is likely related to your developing baby. Please follow-up with your ELECTROSTATIC PAINT OPERATOR in the next 24-48 hours. Return to the emergency department immediately if you have worsening of your pain, have persistent vomiting, develop a fever of greater than 100.4F, begin to have vaginal bleeding, or any other symptoms that are worrisome to you. Referrals: BEV WILKINSON MD [Primary Care Provider] - Follow up as needed
[2018-08-13 03:03] VITALS: BP 135/68
== END 2018-08-13 03:00 | disposition home or self-care (01) ==
LOC: ER 01:00
DX: O26.892 Other specified pregnancy related conditions, second trimester (principal); R10.2 Pelvic and perineal pain; O99.89 Other specified diseases and conditions complicating pregnancy, childbirth and the puerperium; M54.5 Low back pain; Z3A.16 16 weeks gestation of pregnancy; Z88.5 Allergy status to narcotic agent
CPT/HCPCS: 81001; 99284

== ENCOUNTER 2019-01-08 06:58 | Inpatient (IN) | payer MEDICAID ==
[2019-01-08] MEDS ORDERED: RINGERS SOLUTION,LACTATED 1,000 ML IV PRN (07:32)
[2019-01-08] MEDS ORDERED: RINGERS SOLUTION,LACTATED 1,000 ML IV ONE (07:32)
[2019-01-08] MEDS ORDERED: OXYTOCIN/NORMAL SALINE 20 UNIT/1,000 ML RTUINJ ONE (07:33)
[2019-01-08] MEDS ORDERED: MISOPROSTOL 0.2 MG TABLET ONE (07:33)
[2019-01-08] MEDS ORDERED: LIDOCAINE 1% INJ-PF (10 MG/ML) 30 ML SDV ONE (07:33)
[2019-01-08] MEDS ORDERED: OXYTOCIN 10 UNIT/ML VIAL ONE (07:33)
[2019-01-08 07:51] LABS: APPEARANCE,URINE TURBID; BILIRUBIN,URINE NEGATIVE (NEGATIVE); COLOR,URINE YELLOW; GLUCOSE, URINE NEGATIVE (NEGATIVE); KETONES,URINE NEGATIVE (NEGATIVE); LEUKOCYTE ESTERASE,URINE MODERATE (NEGATIVE); NITRITE,URINE NEGATIVE (NEGATIVE); PROTEIN,URINE 100 mg/dL (NEGATIVE); URINE SPECIFIC GRAVITY 1.009; UROBILINOGEN,URINE NEGATIVE mg/dL (<2.0)
[2019-01-08 08:00] LABS: ABSOLUTE BASOPHILS # (AUTO) 0.1 10^3/uL (0.0-0.2); ABSOLUTE LYMPHOCYTES (AUTO) 1.9 10^3/uL (0.5-4.7); ABSOLUTE MONOCYTES (AUTO) 0.5 10^3/uL (0.1-1.4); BASOPHILS % (AUTO) 1.2 % (0-2); EOSINOPHILS % (AUTO) 0.7 % (0-6); HEMATOCRIT 33.5 % (36.0-47.0); HEMOGLOBIN 11.4 g/dL (12.0-15.5); LYMPHOCYTES % (AUTO) 28.5 % (13-45); MEAN CORPUSCULAR HEMOGLOBIN 29.3 pg (27.0-33.4); MEAN CORPUSCULAR HGB CONC 33.9 g/dL (32.0-36.0); MEAN CORPUSCULAR VOLUME 86 fl (80-97); MONOCYTES % (AUTO) 7.9 % (3-13); PLATELET COUNT 184 10^3/uL (150-450); RED BLOOD COUNT 3.88 10^6/uL (3.72-5.28); RED CELL DISTRIBUTION WIDTH 15.2 % (11.5-14.0); SEGMENTED NEUTROPHILS % (AUTO) 61.7 % (42-78); TOTAL CELLS COUNTED % (AUTO) 100 %; WHITE BLOOD COUNT 6.5 10^3/uL (4.0-10.5)
[2019-01-08 08:05] LABS: URINE AMPHETAMINES SCREEN NEGATIVE; URINE BARBITURATES SCREEN NEGATIVE; URINE BENZODIAZEPINES SCREEN NEGATIVE; URINE COCAINE SCREEN NEGATIVE; URINE MARIJUANA (THC) SCREEN NEGATIVE; URINE METHADONE SCREEN NEGATIVE; URINE PHENCYCLIDINE SCREEN NEGATIVE
--- NOTE | 2019-01-08 08:07 | Admission Physical ---
Datetime Report Generated by CPN: 01/08/2019 08:07 CURRENT ADMISSION Chief Complaint: Uterine Contractions Indication for Induction: Not Applicable Admit Impression : Term, Intrauterine ; Active Labor Admit Plan: Admit to Unit; Initiate Labor Protocol ALLERGIES Medication Allergies: hydrocodone bitartrate (05/27/2018) OBSTETRICAL HISTORY EDC: 01/16/2019 00:00 : 4 Para: 3 Term: 2 : 1 SAB: 0 IAB: 0 Ectopic: 0 Livin Cesareans: 0 VBACs: 0 Multiple Births: 0 SEE RECORDS Alcohol: No PHYSICAL EXAM General: Normal HEENT: Normal Neurologic: Normal Thyroid: Deferred Heart: Normal Lungs: Normal Breast: Deferred Back: Normal Abdomen: Normal Genitourinary Exam: Normal Extremities: Normal DTRs: Normal Pelvic Type: Adequate Vital Signs: Reviewed VAGINAL EXAM Dilatation: 5 Effacement: 80 Station: -2 Contraction Comments: q 2-3 MEMBRANES Membranes: Intact FETUS A EGA: 38.6 Monitoring: External US FHR- Baseline: 135 Variability: Moderate 6-25bpm Accelerations: 15X15 Decelerations: None FHR Category: Category I Presentation: Vertex Admit Comment: 28yo at 38+6ega presents for active labor with regular uterine contractions. SROM upon arrival to floor. Active labor. H/o x 3. 31wks 2008 then 2 full term 7#6oz. Anticipate . REassuring FWB. PLANS FOR LABOR AND DELIVERY Labor and Delivery: None Pain Management: None Feeding Preference: Breast Benefit of Breast Feed Discussed: Yes Circumcision: N/A INFORMED CONSENT Informed Consent Obtained: Vaginal Delivery; Risks, Benefits and Alternatives Discussed Signature: with User ID: [email or web address]
[2019-01-08] MEDS ORDERED: MEPERIDINE HCL/PF INJ 25 MG/1 ML DISP.SYRIN ONE (09:08)
[2019-01-08] MEDS ORDERED: IBUPROFEN 800 MG TABLET ONE (09:18)
[2019-01-08] MEDS ORDERED: ACETAMINOPHEN WITH CODEINE #3 TABLET PO PRN (09:28)
[2019-01-08] MEDS ORDERED: BENZOCAINE/MENTHOL AEROSOL SPRAY 56 ML TOP PRN (09:28)
[2019-01-08] MEDS ORDERED: MEASLES,MUMPS&RUBELLA VACC/PF 0.5 ML VIAL SUBCUT PRN (09:28)
[2019-01-08] MEDS ORDERED: DIBUCAINE 1% OINTMENT 56 GM TP PRN (09:28)
[2019-01-08] MEDS ORDERED: DIPH/PERTUSS(ACELL)/TETANUS VAC/PF 0.5 ML SYR (>=10YO) IM PRN (09:28)
[2019-01-08] MEDS ORDERED: OXYTOCIN/NORMAL SALINE 20 UNIT/1,000 ML RTUINJ IV PRN (09:28)
--- NOTE | 2019-01-08 12:04 | Delivery Summary ---
Del Sum A-C Datetime Report Generated by CPN: 01/08/2019 12:03 DELIVERY PERSONNEL DELIVERY PERSONNEL: [id number] Delivery Doctor:: Hafsa Meeks MD Labor and Delivery Nurse:: Felicitas Hernandez RNsupervisor typesetting Nurse:: Gisele North RN Railroad Carman/STUDENT NURSE: Angela Cruz, LENS GRINDING MACHINE OPERATOR MATERNAL INFORMATION Delivery Anesthesia: None Medications After Delivery: Pitocin Bolus-Please Comment Meds After Delivery Comment: pitocin 20 units in 100mL NS Estimated Blood Loss (ml): 250 Maternal Complications: Precipitous Labor (<3hrs) Provider Comments: manual extraction of placenta due to umbilical cord evulsion. LABOR SUMMARY EDC: 01/16/2019 00:00 No. Babies in Womb: 1 Attempted: No Labor Anesthesia: None LABOR INFORMATION Reason for Induction: Not Applicable Onset of Labor: 01/08/2019 06:00 Complete Dilatation: 01/08/2019 08:53 Oxytocin: N/A Group B Beta Strep: negative Antibiotics # of Doses: 0 Steroids Given: None Reason Steroids Not Administered: Not Applicable MEMBRANES Membranes Rupture Method: Spontaneous Rupture of Membranes: 01/08/2019 07:40 Length of Rupture (hr): 1.38 Amniotic Fluid Color: Clear Amniotic Fluid Amount: Small STAGES OF LABOR Stage 1 hr: 2 Stage 1 min: 53 Stage 2 hr: 0 Stage 2 min: 10 Stage 3 hr: 0 Stage 3 min: 4 Total Time in Labor hr: 3 Total Time in Labor min: 7 VAGINAL DELIVERY Episiotomy: None Laceration #1: None Laceration Extension #1: N/A Laceration Repair: Not Applicable Sponge Count Correct: Yes Sharps Count Correct: Yes CSECTION DELIVERY Primary Indication: N/A Secondary Indication: N/A CSection Incidence: N/A Labor: N/A Elective: N/A CSection Incision: N/A BABY A INFORMATION Delivery Date/Time: 01/08/2019 09:03 Method of Delivery: Vaginal Born in Route : No : N/A Forceps: N/A Vacuum Extraction: N/A Shoulder Dystocia : No PRESENTATION/POSITION BABY A Presentation: Cephalic Cephalic Presentation: Vertex Vertex Position: Right Occipital Anterior Breech Presentation: N/A PLACENTA INFORMATION BABY A Placenta Delivery Time : 01/08/2019 09:07 Placenta Method of Delivery: Manual Removal Placenta Status: Delivered SCORES BABY A Heart Rate 1 min: >100 bpm Resp Effort 1 min: Good Cry Reflex Irritability 1 min: Cough or Sneeze or Pulls Away Muscle Tone 1 min: Active Motion Color 1 min: Body [place], Extremities Blue Resuscitation Effort 1 min: Tactile Stimulation SCORE 1 MIN: 9 Heart Rate 5 min: >100 bpm Resp Effort 5 min: Good Cry Reflex Irritability 5 min: Cough or Sneeze or Pulls Away Muscle Tone 5 min: Active Motion Color 5 min: Body [place], Extremities Blue Resuscitation Effort 5 min: N/A SCORE 5 MIN: 9 INFANT INFORMATION BABY A Gestational Age at Delivery: 38.6 Gestational Status: Early Term- 37- 38.6 Weeks Outcome : Liveborn Condition : Stable Sex: Female IDENTIFICATION BABY A Infant Verification Date/Time: 01/08/2019 09:27 ID Band Number: [id number] Mother's Name Verified: Yes RN Verifying Infant: B Baidy RN/J Monk RN WEIGHT/LENGTH BABY A Birthweight (gm): 3659 Infant Weight (lb): 8 Weight (oz): 1 Length (in): 20.75 Length (cm): 52.71 CORD INFORMATION BABY A No. Cord Vessels: 3 Nuchal Cord : N/A Cord Blood Taken: Yes-For Storage (Mom's Blood type +) Infant Suction: None ASSESSMENT BABY A Infant Complications: Meconium Physical Findings at Delivery: Within Normal Limits Respirations: Appears Normal Proof Machine Operator/ALS Called : No Infant Care By: B Baidy RN Transferred To: Remains with Mother BABY B INFORMATION : N/A SIGNATURES Signature: with User ID: [email or web address]
[2019-01-08] MEDS: FERROUS SULFATE 325 MG TABLET PO SCH ×2 (12:46→17:31)
[2019-01-08] MEDS: DOCUSATE SODIUM 100 MG CAPSULE PO SCH ×2 (12:46→17:31)
[2019-01-08] MEDS: SENNOSIDES/DOCUSATE 8.6-50 MG 1 EACH TABLET PO SCH (12:47)
[2019-01-08] MEDS: IBUPROFEN 800 MG TABLET PO PRN (17:31)
[2019-01-08] MEDS: ACETAMINOPHEN WITH CODEINE #3 TABLET PO PRN (21:57)
[2019-01-09] MEDS: IBUPROFEN 800 MG TABLET PO PRN ×2 (05:53→17:42)
--- NOTE | 2019-01-09 09:56 | PDOC PROGRESS REPORT ---
Subjective-OB Progress Note for:: 01/09/19 Subjective: Doing well, no c/o, resting, scant bleeding, Physical Exam (OB) Vital Signs: Temp Pulse Resp BP Pulse Ox 98.7 F 84 18 129/57 H 100 01/08/19 20:16 01/08/19 20:16 01/08/19 20:16 01/08/19 20:16 01/08/19 20:16 Intake & Output 01/08/19 01/09/19 01/10/19 06:59 06:59 06:59 Intake Total 400 Output Total 160 Balance 240 - PIH/Pre-Eclampsia DTR's: 2 + Headache: Absent Epigastric Pain: No Visual Changes: No - Lochia Lochia Amount: Small 10-25 ml Lochia Color: Rubra/Red - Abdomen Description: Tender, Soft Hernia Present: No Fundal Description: Firm, Midline Fundal Height: u/u - u/2 Objective-Diagnostic Laboratory: 01/08/19 07:45 Assessment and Plan(PN) - Assessment and Plan (1) Delivery normal Is this a current diagnosis for this admission?: Yes - Time Spent with Patient Time with patient: Less than 15 minutes Medications reviewed and adjusted accordingly: Yes - Disposition Anticipated Discharge: Home Within: within 24 hours
[2019-01-09] MEDS: DOCUSATE SODIUM 100 MG CAPSULE PO SCH ×2 (10:14→17:38)
[2019-01-09] MEDS: SENNOSIDES/DOCUSATE 8.6-50 MG 1 EACH TABLET PO SCH (10:14)
[2019-01-09] MEDS: FERROUS SULFATE 325 MG TABLET PO SCH ×2 (10:14→17:38)
[2019-01-09] MEDS: PRENATAL VITAMIN W DHA CAPSULE PO SCH (10:14)
[2019-01-09] MEDS: ACETAMINOPHEN WITH CODEINE #3 TABLET PO PRN (17:40)
[2019-01-10] MEDS: IBUPROFEN 800 MG TABLET PO PRN (03:48)
[2019-01-10] MEDS: SENNOSIDES/DOCUSATE 8.6-50 MG 1 EACH TABLET PO SCH (09:15)
[2019-01-10] MEDS: DOCUSATE SODIUM 100 MG CAPSULE PO SCH (09:15)
[2019-01-10] MEDS: PRENATAL VITAMIN W DHA CAPSULE PO SCH (09:15)
[2019-01-10] MEDS: FERROUS SULFATE 325 MG TABLET PO SCH (09:15)
--- NOTE | 2019-01-10 09:23 | PDOC PROGRESS REPORT ---
Subjective-OB Progress Note for:: 01/10/19 Subjective: Doing well, no c/o, ready to go home, breast feeding Physical Exam (OB) Vital Signs: Temp Pulse Resp BP Pulse Ox 98.2 F 72 14 115/59 L 100 01/10/19 07:15 01/10/19 07:15 01/10/19 07:15 01/10/19 07:15 01/10/19 07:15 Intake & Output 01/09/19 01/10/19 01/11/19 06:59 06:59 06:59 Intake Total 400 380 Output Total 160 Balance 240 380 - PIH/Pre-Eclampsia DTR's: 1 + Clonus: Negative Headache: Absent Epigastric Pain: No Visual Changes: No - Lochia Lochia Amount: Scant < 10 ml Lochia Color: Rubra/Red - Abdomen Description: Soft, Round Hernia Present: No Fundal Description: Firm, Midline Fundal Height: u/u - u/2 Objective-Diagnostic Laboratory: 01/08/19 07:45 Assessment and Plan(PN) - Assessment and Plan (1) Delivery normal Is this a current diagnosis for this admission?: Yes - Time Spent with Patient Time with patient: Less than 15 minutes Medications reviewed and adjusted accordingly: Yes - Disposition Anticipated Discharge: Home Within: within 24 hours
--- NOTE | 2019-01-10 09:27 | PDOC DISCHARGE SUMMARY ---
Final Diagnosis Discharge Date: 01/10/19 - Final Diagnosis (1) Delivery normal Is this a current diagnosis for this admission?: Yes Discharge Data - Discharge Medication Home Medications: Vit/Dha [ Multi + Dha Capsule] 1 cap PO DAILY capsule 01/10/19 Gestational Age: 38.6 Reason(s) for Admission: Onset of Labor Procedures: Ultrasound Intrapartum Procedure(s): Spontaneous Vaginal Delivery Intrapartum Procedure Note: manual extraction of placenta due to UC evulsion - [place] Data Baby 1 Female Weight: 3.657 kg Home with Mother: Yes Complications: No - Diagnosis Test Laboratory: Temp Pulse Resp BP Pulse Ox 98.2 F 72 14 115/59 L 100 01/10/19 07:15 01/10/19 07:15 01/10/19 07:15 01/10/19 07:15 01/10/19 07:15 01/08/19 01/08/19 07:15 07:45 RBC 3.88 Hgb 11.4 L Hct 33.5 L Urine Opiates Screen NEGATIVE - Discharge information/Instructions Discharge Activity: Activity As Tolerated, No Lifting Over 10 Pounds, No Lifting/Push/Pulling, Pelvic Rest Discharge Diet: As Tolerated, Regular Disposition: HOME, SELF-CARE Follow up with: [facility] in: 4, Weeks
[2019-01-10 11:24] VITALS: BP 121/76
== END 2019-01-10 13:49 | disposition home or self-care (01) | DRG 807 ==
LOC: LC 06:58 → LR 07:24 → 2S 11:59
PROVIDERS: ADMIT Student in an Organized Health Care Education/Training Program; ATTEND Student in an Organized Health Care Education/Training Program
PROC: 10E0XZZ Delivery of Products of Conception, External Approach (ICD-10-PCS; principal; 2019-01-08)
DX: O62.3 Precipitate labor (principal); Z37.0 Single live birth; O69.89X0 Labor and delivery complicated by other cord complications, not applicable or unspecified; Z3A.38 38 weeks gestation of pregnancy; O77.0 Labor and delivery complicated by meconium in amniotic fluid
CPT/HCPCS: 36415; 80307; 81005; 85025; 86592; 86850; 86900; 86901; J2175; J2590; J3490

== ENCOUNTER 2020-02-05 19:50 | Inpatient (IN) | payer MEDICAID ==
[2020-02-05 20:28] LABS: APPEARANCE,URINE SLIGHTLY-CLOUDY; BILIRUBIN,URINE NEGATIVE (NEGATIVE); COLOR,URINE YELLOW; GLUCOSE, URINE NEGATIVE (NEGATIVE); KETONES,URINE NEGATIVE (NEGATIVE); LEUKOCYTE ESTERASE,URINE TRACE (NEGATIVE); NITRITE,URINE NEGATIVE (NEGATIVE); PROTEIN,URINE 30 mg/dL (NEGATIVE)
[2020-02-05 20:50] LABS: URINE AMPHETAMINES SCREEN NEGATIVE; URINE BARBITURATES SCREEN NEGATIVE; URINE BENZODIAZEPINES SCREEN NEGATIVE; URINE COCAINE SCREEN NEGATIVE; URINE MARIJUANA (THC) SCREEN NEGATIVE; URINE METHADONE SCREEN NEGATIVE; URINE PHENCYCLIDINE SCREEN NEGATIVE
[2020-02-05] MEDS ORDERED: RINGERS SOLUTION,LACTATED 1,000 ML IV ONE (21:48)
[2020-02-05] MEDS ORDERED: RINGERS SOLUTION,LACTATED 1,000 ML IV PRN (21:48)
[2020-02-05 22:27] LABS: ABSOLUTE BASOPHILS # (AUTO) 0.1 10^3/uL (0.0-0.2); ABSOLUTE LYMPHOCYTES (AUTO) 1.7 10^3/uL (0.5-4.7); ABSOLUTE MONOCYTES (AUTO) 0.6 10^3/uL (0.1-1.4); ABSOLUTE NEUT (AUTO) 5.3 10^3/uL (1.7-8.2); EOSINOPHILS % (AUTO) 0.5 % (0-6); HEMATOCRIT 33.9 % (36.0-47.0); HEMOGLOBIN 11.2 g/dL (12.0-15.5); LYMPHOCYTES % (AUTO) 22.5 % (13-45); MEAN CORPUSCULAR HGB CONC 33.1 g/dL (32.0-36.0); MEAN CORPUSCULAR VOLUME 85 fl (80-97); MONOCYTES % (AUTO) 7.5 % (3-13); PLATELET COUNT 230 10^3/uL (150-450); RED BLOOD COUNT 4.02 10^6/uL (3.72-5.28); RED CELL DISTRIBUTION WIDTH 15.2 % (11.5-14.0); SEGMENTED NEUTROPHILS % (AUTO) 68.5 % (42-78); TOTAL CELLS COUNTED % (AUTO) 100 %; WHITE BLOOD COUNT 7.7 10^3/uL (4.0-10.5)
[2020-02-05 22:50] LABS: ALBUMIN 3.7 g/dL (3.5-5.0); ALKALINE PHOSPHATASE 117 U/L (38-126); ANION GAP 9 (5-19); ASPARTATE AMINO TRANSFERASE 14 U/L (14-36); BILIRUBIN,DIRECT 0.3 mg/dL (0.0-0.4); BILIRUBIN,TOTAL 0.4 mg/dL (0.2-1.3); BLOOD UREA NITROGEN 6 mg/dL (7-20); CALCIUM 8.9 mg/dL (8.4-10.2); CARBON DIOXIDE 22 mmol/L (22-30); CHLORIDE 106 mmol/L (98-107); GLUCOSE 92 mg/dL (75-110); POTASSIUM 4.3 mmol/L (3.6-5.0); TOTAL PROTEIN 7.3 g/dL (6.3-8.2); URIC ACID 2.9 mg/dL (2.5-6.2)
[2020-02-06] MEDS ORDERED: OXYTOCIN 10 UNIT/ML VIAL ONE (00:11)
[2020-02-06] MEDS ORDERED: MISOPROSTOL 0.2 MG TABLET ONE (00:12)
[2020-02-06] MEDS ORDERED: LIDOCAINE 1% INJ-PF (10 MG/ML) 30 ML SDV ONE (00:12)
[2020-02-06] MEDS ORDERED: OXYTOCIN/0.9 % SODIUM CHLORIDE 30 UNIT/500 ML RTUINJ ONE (00:12)
--- NOTE | 2020-02-06 01:14 | Admission Physical ---
Datetime Report Generated by CPN: 02/06/2020 01:14 CURRENT ADMISSION Chief Complaint: Uterine Contractions Indication for Induction: Not Applicable; Chronic Primary/Essential HTN Admit Impression : Term, Intrauterine Admit Plan: Admit to Unit; Initiate Labor Augmentation Protocol ALLERGIES Medication Allergies: Yes Medication Allergies: hydrocodone bitartrate (05/27/2018) Latex: No Latex Allergies OBSTETRICAL HISTORY EDC: 02/11/2020 00:00 : 5 Para: 4 Term: 3 : 1 SAB: 0 IAB: 0 Ectopic: 0 Livin Cesareans: 0 VBACs: 0 Multiple Births: 0 Gestational Diabetes: No Rh Sensitization: No Incompetent Cervix: No TALI: No Infertility: No ART Treatment: No Uterine Anomaly: No IUGR: No Hx Previous C/S: No Macrosomia: No Hx Loss/Stillborn: No PIH: No Hx : No Placenta Previa/Abruption: No Depression/PP Depression: No PTL/PROM: Yes Post Hemorrhage: No Current Procedures: Ultrasound Obstetrical History Comments: G1 31 weeks male PROM; PTL G2-2009 41 weeks female G3-2011 41 weeks female G4-2018 38.6 weeks female G5-Current SEE RECORDS Alcohol: No Marijuana : No Cocaine: No Other Illicit Drugs: No Cigarettes: Former Smoker. [id number] Advised to Stop: No Cigarette Comments: pt no longer smoking MEDICAL HISTORY Diabetes: No Blood Transfusion: No Pulmonary Disease (Asthma, TB): No Breast Disease: No Hypertension: No Drapery And Upholstery Estimator Surgery: No Heart Disease: No Hosp/Surgery: No Autoimmune Disorder: No Anesthetic Complications: No Kidney Disease: No Abnormal Pap Smear: No Neuro/Epilepsy: No Psychiatric Disorders: No Other Medical Diseases: No Hepatitis/Liver Disease: No Significant Family History: No Varicosities/Phlebitis: No Trauma/Violence : No Thyroid Dysfunction: No INFECTIOUS HISTORY Gonorrhea: No Genital Herpes: No Chlamydia: No Tuberculosis: No Syphilis: No Hepatitis: No HIV/AIDS Exposure: No Rash or Viral Illness: No HPV: No PHYSICAL EXAM General: Normal HEENT: Normal Neurologic: Normal Thyroid: Normal Heart: Normal Lungs: Normal Breast: Normal Back: Normal Abdomen: Normal Genitourinary Exam: Normal Extremities: Normal DTRs: Normal Pelvic Type: Adequate Vital Signs: Reviewed VAGINAL EXAM Dilatation: 3 Effacement: 75 Station: -1 MEMBRANES Pooling: Negative Membranes: Intact FETUS A EGA: 39.1 Monitoring: External US FHR- Baseline: 130 Variability: Moderate 6-25bpm Accelerations: 15X15 Decelerations: None FHR Category: Category I Estimated Weight (gm): 3400 Presentation: Vertex Admit Comment: keep and augment secondary to several elevated BPs and a suspicion for CHTN. Seems to be in early labor. PLANS FOR LABOR AND DELIVERY Labor and Delivery: None Pain Management: Natural Feeding Preference: Formula Benefit of Breast Feed Discussed: Yes Circumcision: Yes INFORMED CONSENT Signature: with User ID: [email or web address]
[2020-02-06] MEDS ORDERED: DIPH/PERTUSS(ACELL)/TETANUS VAC/PF 0.5 ML SYR (>=10YO) IM PRN (01:18)
[2020-02-06] MEDS ORDERED: ZOLPIDEM TARTRATE 5 MG TABLET PO PRN (01:18)
[2020-02-06] MEDS ORDERED: PROMETHAZINE HCL INJ 25 MG/1 ML VIAL IV PRN (01:18)
[2020-02-06] MEDS ORDERED: BENZOCAINE/MENTHOL AEROSOL SPRAY 56 ML TOP PRN (01:18)
[2020-02-06] MEDS ORDERED: PROMETHAZINE HCL 25 MG SUPP.RECT PR PRN (01:18)
[2020-02-06] MEDS ORDERED: DIPHENHYDRAMINE HCL 25 MG CAPSULE PO PRN (01:18)
[2020-02-06] MEDS ORDERED: PSEUDOEPHEDRINE HCL 30 MG TABLET PO PRN (01:18)
[2020-02-06] MEDS ORDERED: MEASLES,MUMPS&RUBELLA VACC/PF 0.5 ML VIAL SUBCUT PRN (01:18)
[2020-02-06] MEDS ORDERED: GLYCERIN/WITCH HAZEL LEAF 1 EACH MED..WIPE TP PRN (01:18)
[2020-02-06] MEDS ORDERED: PROMETHAZINE HCL 25 MG TABLET PO PRN (01:18)
[2020-02-06] MEDS ORDERED: OXYTOCIN/0.9 % SODIUM CHLORIDE 30 UNIT/500 ML RTUINJ IV PRN (01:18)
[2020-02-06] MEDS ORDERED: NA PHOS,M-B/NA PHOS,DI-BA (ADULT) 133 ML ENEMA PR PRN (01:18)
[2020-02-06] MEDS ORDERED: MAGNESIUM HYDROXIDE SUSP 30 ML UDCUP PO PRN (01:18)
[2020-02-06] MEDS ORDERED: ACETAMINOPHEN 650 MG SUPP.RECT PR PRN (01:18)
[2020-02-06] MEDS ORDERED: ACETAMINOPHEN 325 MG TABLET PO PRN (01:18)
[2020-02-06] MEDS ORDERED: DIBUCAINE 1% OINTMENT 28 GM TP PRN (01:18)
[2020-02-06] MEDS ORDERED: ACETAMINOPHEN WITH CODEINE #3 TABLET PO PRN ×2 (01:18)
--- NOTE | 2020-02-06 03:40 | Warning Signs in Babies ---
VOD Warning Signs Datetime Report Generated by [facility]: 02/06/2020 03:39 VOD#608 -Warning Signs in Babies: Needs to be viewed. (02/05/2020 20:34:Andres Ochoa RN)
--- NOTE | 2020-02-06 04:03 | Birth Certificate Data ---
Cert Data Datetime Report Generated by CPN: 02/06/2020 04:03 CERTIFICATE DATA 47a. Care: No (02/05/2020 20:34:Andres Ochoa RN) 47b. Date of First Visit: 10/11/2019 00:00 (02/05/2020 20:34:Andres Ochoa RN) 47c. Date of Last Visit: 01/25/2020 00:00 (02/05/2020 20:34:Andres Ochoa RN) 47d. Number of Visits: 5 (02/05/2020 20:34:Andres Ochoa RN) 48a. Number of Prev Live Births: 4 (02/05/2020 20:34:Andres Ochoa RN) 48b. Now Livin (02/05/2020 20:34:Andres Ochoa RN) 48c. Live Births Now : 0 (02/05/2020 20:34:QS system process) 48e. Losses: 0 (02/05/2020 20:34:Andres Ochoa RN) RISK FACTORS IN THIS 49a. Diabetes: No (02/05/2020 20:34:Andres Ochoa RN) 49b. Hypertension: No (02/05/2020 20:34:Andres Ochoa RN) 49c. Previous Births: 1 (02/05/2020 20:34:Andres Ochoa RN) 49d. Stillborns: No (02/05/2020 20:34:Andres Ochoa RN) 49d. IUGR: No (02/05/2020 20:34:Andres Ochoa RN) 49e. Infertility Treatment: No (02/05/2020 20:34:Andres Ochoa RN) 49f. Previous Cesareans: 0 (02/05/2020 20:34:Andres Ochoa RN) Mother's Height 50b. Height Inches: 62 (02/05/2020 20:07:QS system process) Mother's Weight 51a. Pre- Weight (lbs): 240 (02/05/2020 20:34:Andres Ochoa RN) 51b. Weight at Delivery (lbs): 262 (02/05/2020 20:07:QS system process) 52. Dt Last Normal Menses Began: 05/07/2019 00:00 (02/05/2020 20:34:Andres Ochoa RN) Infections Present/Treated 53a. Gonorrhea: No (02/05/2020 20:34:Andres Ochoa RN) Results this Hospital Visit : Negative (02/05/2020 20:34:Andres Ochoa RN) 53b. Syphilis: No (02/05/2020 20:34:Andres Ochoa RN) 53c. Chlamydia: No (02/05/2020 20:34:Andres Ochoa RN) Results this Hospital Visit: Negative (02/05/2020 20:34:Andres Ochoa RN) 53d. Hepatitis B: No (02/05/2020 20:34:Andres Ochoa RN) Results this Hospital Visit: Negative (02/05/2020 20:34:Andres Ochoa RN) 53e. Hepatitis C: Negative (02/05/2020 20:34:Andres Ochoa RN) 53h. Mother Tested for HBsAG: Yes (02/05/2020 20:34:Andres Ochoa RN) 53i. Date Tested: 01/10/2020 00:00 (02/05/2020 20:34:Andres Ochoa RN) 53j. Test Result: Negative (02/05/2020 20:34:Andres Ochoa RN) Obstetric Procedures 54a, b, c. Obstetric Procedures: Ultrasound (02/05/2020 20:34:Andres Ochoa RN) Cigarette Smoking Cigarette Smoking: Former Smoker. [id number] (02/05/2020 20:34:Andres Ochoa RN) Onset of Labor 56a. PROM >12 Hrs: 0.12 (02/05/2020 20:34:QS system process) 56b. Precipitous Labor <3 Hrs: 1 (02/05/2020 20:34:QS system process) 56c. Prolonged Labor > 20 Hrs: 1 (02/05/2020 20:34:QS system process) 57a. Induction of Labor: N/A (02/05/2020 20:34:Andres Ochoa RN) 57c. Non-Vertex Presentation A: Vertex (02/05/2020 20:34:Andres Ochoa RN) 57d. Steroids - Lung Mat: None (02/05/2020 20:34:Andres Ochoa RN) 57d. Steroids - Lung Mat: Not Applicable (02/05/2020 20:34:Andres Ochoa RN) 57f. Mat [place] or Temp >100.4: 98.4 (02/05/2020 20:34:Andres Ochoa RN) 57g. Moderate/Heavy Meconium: Clear (02/06/2020 00:56:Andres Ochoa RN) 57h. Intolerance of Labor: N/A (02/05/2020 20:34:Andres Ochoa RN) : N/A (02/05/2020 20:34:Andres Ochoa RN) 57i. Epidural/Spinal Anesthesia: None (02/05/2020 20:34:Andres Ochoa RN) Method of Delivery 58a. Forceps - Unsuccessful A: N/A (02/05/2020 20:34:Andres Ochoa RN) 58b. Vacuum - Unsuccessful A: N/A (02/05/2020 20:34:Andres Ochoa RN) 58c. Presentation at 58c. Presentation at - A : Vertex (02/05/2020 20:34:Andres Ochoa RN) 58c. Presentation at - A : N/A (02/05/2020 20:34:Andres Ochoa RN) 58c. Presentation at - A : Cephalic (02/05/2020 20:34:Andres Ochoa RN) Final Route and Method of Del 58d. Baby A Route/Delivery: Vaginal (02/05/2020 20:34:Andres Ochoa RN) 58e. Trial of Labor Attempted: No (02/05/2020 20:34:Andres Ochoa RN) 58e. Trial of Labor Attempted A: N/A (02/05/2020 20:34:Andres Ochoa RN) 58e. Trial of Labor Attempted B: N/A (02/05/2020 20:34:Andres Ochoa RN) Maternal Morbidity 59b. 3rd or 4th Degree Lacs: None (02/05/2020 20:34:Andres Ochoa RN) 59b. 3rd or 4th Degree Lacs: N/A (02/05/2020 20:34:Andres Ochoa RN) Birthweight Baby A: 3371 (02/05/2020 20:34:Mabel Murillo RN) 60a. Pounds : 7 (02/05/2020 20:34:QS system process) 60b. Ounces: 7 (02/05/2020 20:34:QS system process) 61. GA at Delivery Baby A: 39.2 (02/05/2020 20:34:Andres Ochoa RN) : Full Term- 39- 40.6 Weeks (02/05/2020 20:34:QS system process) 62a. 5 Minute Baby A: 10 (02/05/2020 20:34:QS system process)
--- NOTE | 2020-02-06 04:03 | Delivery Summary ---
Del Sum A-C Datetime Report Generated by CPN: 02/06/2020 04:03 DELIVERY PERSONNEL DELIVERY PERSONNEL: [id number] Delivery Doctor:: Hafsa Meeks MD Labor and Delivery Nurse:: Andres Ochoa RN Nursery Nurse:: Gisel KILGORE Administrative Law Judge/MEDIA ASSISTANT: Iman Sena, ST MATERNAL INFORMATION Delivery Anesthesia: None Medications After Delivery: Pitocin 30 Units in 500ml NS/D5W Estimated Blood Loss (ml): 200 Delivery QBL: 100 Maternal Complications: None LABOR SUMMARY EDC: 02/11/2020 00:00 No. Babies in Womb: 1 Attempted: No Labor Anesthesia: None LABOR INFORMATION Reason for Induction: Not Applicable Onset of Labor: 02/05/2020 23:14 Complete Dilatation: 02/06/2020 00:57 Oxytocin: N/A Group B Beta Strep: Negative Steroids Given: None Reason Steroids Not Administered: Not Applicable MEMBRANES Membranes Rupture Method: Artificial Rupture of Membranes: 02/06/2020 00:56 Length of Rupture (hr): 0.12 Amniotic Fluid Color: Clear Amniotic Fluid Amount: Small STAGES OF LABOR Stage 1 hr: 1 Stage 1 min: 43 Stage 2 hr: 0 Stage 2 min: 6 Stage 3 hr: 0 Stage 3 min: 3 Total Time in Labor hr: 1 Total Time in Labor min: 52 VAGINAL DELIVERY Episiotomy: None Laceration #1: None Laceration Extension #1: N/A Laceration Repair: Not Applicable Sponge Count Correct: N/A Sharps Count Correct: N/A CSECTION DELIVERY Primary Indication: N/A Secondary Indication: N/A CSection Incidence: N/A Labor: N/A Elective: N/A BABY A INFORMATION Infant Delivery Date/Time: 02/06/2020 01:03 Method of Delivery: Vaginal Nurse Controlled Delivery: No Born in Route : No : N/A Forceps: N/A Vacuum Extraction: N/A Shoulder Dystocia : No PRESENTATION/POSITION BABY A Presentation: Cephalic Cephalic Presentation: Vertex Vertex Position: Right Occipital Anterior Breech Presentation: N/A PLACENTA INFORMATION BABY A Placenta Delivery Time : 02/06/2020 01:06 Placenta Method of Delivery: Spontaneous Placenta Status: Delivered SCORES BABY A Heart Rate 1 min: >100 bpm Resp Effort 1 min: Good Cry Reflex Irritability 1 min: Cough or Sneeze or Pulls Away Muscle Tone 1 min: Active Motion Color 1 min: Body [place], Extremities Blue Resuscitation Effort 1 min: Tactile Stimulation SCORE 1 MIN: 9 Heart Rate 5 min: >100 bpm Resp Effort 5 min: Good Cry Reflex Irritability 5 min: Cough or Sneeze or Pulls Away Muscle Tone 5 min: Active Motion Color 5 min: Completely [place] Resuscitation Effort 5 min: Tactile Stimulation SCORE 5 MIN: 10 INFORMATION BABY A Gestational Age at Delivery: 39.2 Gestational Status: Full Term- 39- 40.6 Weeks Outcome : Liveborn Condition : Stable Infant Sex: Male IDENTIFICATION BABY A Verification Date/Time: 02/06/2020 03:41 ID Band Number: [id number] Mother's Name Verified: Yes RN Verifying Infant: R Don RN/L [place] INTERPRETER [employer] WEIGHT/LENGTH BABY A Birthweight (gm): 3371 Weight (lb): 7 Weight (oz): 7 Infant Length (in): 20.00 Infant Length (cm): 50.80 CORD INFORMATION BABY A No. Cord Vessels: 3 Nuchal Cord : N/A Cord Blood Taken: Yes-For Storage (Mom's Blood type +) Infant Suction: Mouth ASSESSMENT BABY A Complications: None Physical Findings at Delivery: Other Physical Findings- Other: see nursery assessment Infant Respirations: Appears Normal Skin to Skin: No Director Of Online Education/ALS Called : No Care By: LuceroPadmini Garza RNC Transferred To: Remains with Mother BABY B INFORMATION : N/A SIGNATURES Signature: with User ID: [email or web address]
[2020-02-06] MEDS: IBUPROFEN 800 MG TABLET PO SCH ×3 (05:18→22:09)
[2020-02-06] MEDS: PRENATAL VITAMIN W DHA CAPSULE PO SCH (10:13)
[2020-02-06] MEDS: DOCUSATE SODIUM 100 MG CAPSULE PO SCH ×2 (10:13→17:47)
[2020-02-06] MEDS: FERROUS SULFATE 325 MG TABLET PO SCH ×2 (10:13→17:47)
[2020-02-06] MEDS: FAMOTIDINE 20 MG TABLET PO SCH ×2 (10:13→22:13)
[2020-02-06] MEDS: SENNOSIDES/DOCUSATE 8.6-50 MG 1 EACH TABLET PO SCH (10:13)
--- NOTE | 2020-02-06 10:46 | PDOC PROGRESS REPORT ---
Subjective-OB Progress Note for:: 02/06/20 - Delivery Day, pt doing well, no complaints, has been up to void Physical Exam (OB) Vital Signs: Temp Pulse Resp BP Pulse Ox 97.8 F 79 18 152/98 H 99 02/06/20 07:48 02/06/20 07:48 02/06/20 07:48 02/06/20 07:48 02/06/20 07:48 Intake & Output 02/05/20 02/06/20 02/07/20 06:59 06:59 06:59 Weight 118.6 kg - General General Appearance: Appears well, Alert In distress: None - PIH/Pre-Eclampsia DTR's: 2 + Clonus: Negative Headache: Absent Epigastric Pain: No Visual Changes: No - Maternal Morbidity 59. Maternal Morbidity (serious complications experinced by the mother as sociated with labor and delivery: None of the above - Lochia Lochia Amount: Heavy >50 ml Lochia Color: Rubra/Red - Abdomen Description: Soft, Round Hernia Present: No Fundal Description: Firm, Midline Fundal Height: u/u - u/2 - Respiratory Respiratory Status: No respiratory distress - Abdominal Distension: No distension Tenderness: Nontender - Genitourinary Genitourinary Note: voiding - Extremities Upper extremity: Normal inspection Lower extremities: Normal inspection - Neurological Cognition: Normal Orientation: AAOx4 - Psychological Associated symptoms: Normal affect, Normal mood Objective-Diagnostic Laboratory: 02/05/20 22:15 02/05/20 22:15 02/05/20 02/05/20 02/05/20 20:06 22:15 22:15 WBC 7.7 RBC 4.02 Hgb 11.2 L Hct 33.9 L MCV 85 MCH 28.0 MCHC 33.1 RDW 15.2 H Plt Count 230 Seg Neutrophils % 68.5 Sodium Potassium Chloride Carbon Dioxide Anion Gap BUN Creatinine Est GFR ( Amer) Glucose Uric Acid Calcium Total Bilirubin AST Alkaline Phosphatase Total Protein Albumin Urine Color YELLOW Urine Appearance SLIGHTLY-CLOUDY Urine pH 6.0 Ur Specific [place] 1.020 Urine Protein 30 H Urine Glucose (UA) NEGATIVE Urine Ketones NEGATIVE Urine Blood NEGATIVE Urine Nitrite NEGATIVE Ur Leukocyte Esterase TRACE H Blood Type A POSITIVE Antibody Screen NEGATIVE 02/05/20 22:15 WBC RBC Hgb Hct MCV MCH MCHC RDW Plt Count Seg Neutrophils % Sodium 136.5 L Potassium 4.3 Chloride 106 Carbon Dioxide 22 Anion Gap 9 BUN 6 L Creatinine 0.48 L Est GFR ( Amer) > 60 Glucose 92 Uric Acid 2.9 Calcium 8.9 Total Bilirubin 0.4 AST 14 Alkaline Phosphatase 117 Total Protein 7.3 Albumin 3.7 Urine Color Urine Appearance Urine pH Ur Specific [place] Urine Protein Urine Glucose (UA) Urine Ketones Urine Blood Urine Nitrite Ur Leukocyte Esterase Blood Type Antibody Screen Assessment and Plan(PN) - Assessment and Plan (1) Gestational hypertension affecting second Is this a current diagnosis for this admission?: Yes (2) Delivery normal Is this a current diagnosis for this admission?: Yes - Time Spent with Patient Time with patient: Less than 15 minutes Medications reviewed and adjusted accordingly: Yes - Disposition Anticipated Discharge Disposition: Home, Self Care Anticipated Discharge Timeframe: within 48 hours
[2020-02-07] MEDS: IBUPROFEN 800 MG TABLET PO SCH ×3 (06:32→21:00)
[2020-02-07 06:42] LABS: HEMATOCRIT 30.5 % (36.0-47.0); HEMOGLOBIN 10.1 g/dL (12.0-15.5); MEAN CORPUSCULAR HEMOGLOBIN 28.3 pg (27.0-33.4); MEAN CORPUSCULAR HGB CONC 33.3 g/dL (32.0-36.0); MEAN CORPUSCULAR VOLUME 85 fl (80-97); PLATELET COUNT 172 10^3/uL (150-450); RED BLOOD COUNT 3.58 10^6/uL (3.72-5.28); RED CELL DISTRIBUTION WIDTH 15.6 % (11.5-14.0); WHITE BLOOD COUNT 7.3 10^3/uL (4.0-10.5)
[2020-02-07] MEDS: PRENATAL VITAMIN W DHA CAPSULE PO SCH (09:17)
[2020-02-07] MEDS: FERROUS SULFATE 325 MG TABLET PO SCH ×2 (09:17→17:28)
[2020-02-07] MEDS: DOCUSATE SODIUM 100 MG CAPSULE PO SCH ×2 (09:17→17:28)
[2020-02-07] MEDS: FAMOTIDINE 20 MG TABLET PO SCH ×2 (09:17→21:00)
[2020-02-07] MEDS: SENNOSIDES/DOCUSATE 8.6-50 MG 1 EACH TABLET PO SCH (09:20)
--- NOTE | 2020-02-07 11:32 | PDOC PROGRESS REPORT ---
Subjective-OB Progress Note for:: 02/07/20 Subjective: Pt doing well, no concerns. She reports light bleeding, reg diet and voiding w/o difficulty. Physical Exam (OB) Vital Signs: Temp Pulse Resp BP Pulse Ox 98.0 F 85 16 137/61 H 100 02/07/20 07:53 02/07/20 07:53 02/07/20 07:53 02/07/20 07:53 02/07/20 07:53 Intake & Output 02/06/20 02/07/20 02/08/20 06:59 06:59 06:59 Intake Total 1400 400 Balance 1400 400 Weight 118.6 kg - Maternal Morbidity 59. Maternal Morbidity (serious complications experinced by the mother associated with labor and delivery: None of the above - Lochia Lochia Amount: Scant < 10 ml Lochia Color: Rubra/Red - Abdomen Description: Soft, Flat Hernia Present: No Fundal Description: Firm, Midline Fundal Height: u/u - u/2 Objective-Diagnostic Laboratory: 02/07/20 06:05 02/05/20 22:15 02/07/20 06:05 WBC 7.3 RBC 3.58 L Hgb 10.1 L Hct 30.5 L MCV 85 MCH 28.3 MCHC 33.3 RDW 15.6 H Plt Count 172 Assessment and Plan(PN) - Assessment and Plan (1) Chronic hypertension affecting Is this a current diagnosis for this admission?: Yes (2) Gestational hypertension affecting second Is this a current diagnosis for this admission?: Yes (3) Delivery normal Is this a current diagnosis for this admission?: Yes - Time Spent with Patient Time with patient: Less than 15 minutes Medications reviewed and adjusted accordingly: Yes - Disposition Anticipated Discharge Disposition: Home, Self Care Anticipated Discharge Timeframe: within 24 hours
[2020-02-08] MEDS: IBUPROFEN 800 MG TABLET PO SCH ×2 (05:21→13:26)
[2020-02-08] MEDS: FERROUS SULFATE 325 MG TABLET PO SCH (10:08)
[2020-02-08] MEDS: DOCUSATE SODIUM 100 MG CAPSULE PO SCH (10:08)
[2020-02-08] MEDS: PRENATAL VITAMIN W DHA CAPSULE PO SCH (10:08)
[2020-02-08] MEDS: FAMOTIDINE 20 MG TABLET PO SCH (10:08)
[2020-02-08] MEDS: SENNOSIDES/DOCUSATE 8.6-50 MG 1 EACH TABLET PO SCH (10:08)
--- NOTE | 2020-02-08 12:28 | PDOC DISCHARGE SUMMARY ---
Impression - Admit/DC Date/PCP Admission Date/Primary Care Provider: 02/05/20 21:51 SAMMIE JOY MD Discharge Date: 02/08/20 - Discharge Diagnosis (1) Anemia associated with acute blood loss Is this a current diagnosis for this admission?: Yes (2) Chronic hypertension affecting Is this a current diagnosis for this admission?: Yes (3) Delivery normal Is this a current diagnosis for this admission?: Yes - Assessment Summary: 29yo s/p ppd2- stable and ready for discharge, understands all warning s/s and reasons to rtc/[facility] prior to next scheduled visit. Pt asked questions and verbalized understanding. - Additional Information Resuscitation Status: Do Not Resuscitate Discharge Diet: As Tolerated, Regular Discharge Activity: Activity As Tolerated, Balance Activity w/Rest, No Lifting Over 10 Pounds, No Lifting/Push/Pulling, Pelvic Rest, No tub bath, Walk Frequently Referrals: SAMMIE JOY MD [Primary Care Provider] - Prescriptions: Ibuprofen [Motrin 800 mg Tablet] 800 mg PO Q8HP PRN #20 tablet PRN Reason: For Pain Scale 1-3 Docusate Sodium [Colace 100 mg Capsule] 100 mg PO BID #60 capsule Ferrous Sulfate [Feosol 325 mg Tablet] 325 mg PO BID #60 tablet Home Medications: Vit/Dha [ Multi + Dha Capsule] 1 cap PO DAILY capsule 01/10/19 Docusate Sodium [Colace 100 mg Capsule] 100 mg PO BID #60 capsule 02/08/20 Ferrous Sulfate [Feosol 325 mg Tablet] 325 mg PO BID #60 tablet 02/08/20 Ibuprofen [Motrin 800 mg Tablet] 800 mg PO Q8HP PRN #20 tablet 02/08/20 Hospital Course 59. Maternal Morbidity (serious complications experinced by the mother associated with labor and delivery: None of the above Results Laboratory Results: WBC 7.3 10^3/uL (4.0-10.5) 02/07/20 06:05 RBC 3.58 10^6/uL (3.72-5.28) L 02/07/20 06:05 Hgb 10.1 g/dL (12.0-15.5) L 02/07/20 06:05 Hct 30.5 % (36.0-47.0) L 02/07/20 06:05 MCV 85 fl (80-97) 02/07/20 06:05 MCH 28.3 pg (27.0-33.4) 02/07/20 06:05 MCHC 33.3 g/dL (32.0-36.0) 02/07/20 06:05 RDW 15.6 % (11.5-14.0) H 02/07/20 06:05 Plt Count 172 10^3/uL (150-450) 02/07/20 06:05 Lymph % (Auto) 22.5 % (13-45) 02/05/20 22:15 [place] % (Auto) 7.5 % (3-13) 02/05/20 22:15 Eos % (Auto) 0.5 % (0-6) 02/05/20 22:15 Baso % (Auto) 1.0 % (0-2) 02/05/20 22:15 Absolute Neuts (auto) 5.3 10^3/uL (1.7-8.2) 02/05/20 22:15 Absolute Lymphs (auto) 1.7 10^3/uL (0.5-4.7) 02/05/20 22:15 Absolute Monos (auto) 0.6 10^3/uL (0.1-1.4) 02/05/20 22:15 Absolute Eos (auto) 0.0 10^3/uL (0.0-0.6) 02/05/20 22:15 Absolute Basos (auto) 0.1 10^3/uL (0.0-0.2) 02/05/20 22:15 Seg Neutrophils % 68.5 % (42-78) 02/05/20 22:15 Sodium 136.5 mmol/L (137-145) L 02/05/20 22:15 Potassium 4.3 mmol/L (3.6-5.0) 02/05/20 22:15 Chloride 106 mmol/L (98-107) 02/05/20 22:15 Carbon Dioxide 22 mmol/L (22-30) 02/05/20 22:15 Anion Gap 9 (5-19) 02/05/20 22:15 BUN 6 mg/dL (7-20) L 02/05/20 22:15 Creatinine 0.48 mg/dL (0.52-1.25) L 02/05/20 22:15 Est GFR ( Amer) > 60 (>60) 02/05/20 22:15 Est GFR (MDRD) Non-Af > 60 (>60) 02/05/20 22:15 Glucose 92 mg/dL (75-110) 02/05/20 22:15 Uric Acid 2.9 mg/dL (2.5-6.2) 02/05/20 22:15 Calcium 8.9 mg/dL (8.4-10.2) 02/05/20 22:15 Total Bilirubin 0.4 mg/dL (0.2-1.3) 02/05/20 22:15 Direct Bilirubin 0.3 mg/dL (0.0-0.4) 02/05/20 22:15 Neonat Total Bilirubin Not Reportable 02/05/20 22:15 Neonat Direct Bilirubin Not Reportable 02/05/20 22:15 Neonat Indirect Bili Not Reportable 02/05/20 22:15 AST 14 U/L (14-36) 02/05/20 22:15 ALT 8 U/L (<35) 02/05/20 22:15 Alkaline Phosphatase 117 U/L (38-126) 02/05/20 22:15 Lactate Dehydrogenase 182 U/L (120-246) 02/05/20 22:15 Total Protein 7.3 g/dL (6.3-8.2) 02/05/20 22:15 Albumin 3.7 g/dL (3.5-5.0) 02/05/20 22:15 Urine Color YELLOW 02/05/20 20:06 Urine Appearance SLIGHTLY-CLOUDY 02/05/20 20:06 Urine pH 6.0 (5.0-9.0) 02/05/20 20:06 Ur Specific [place] 1.020 02/05/20 20:06 Urine Protein 30 mg/dL (NEGATIVE) H 02/05/20 20:06 Urine Glucose (UA) NEGATIVE mg/dL (NEGATIVE) 02/05/20 20:06 Urine Ketones NEGATIVE mg/dL (NEGATIVE) 02/05/20 20:06 Urine Blood NEGATIVE (NEGATIVE) 02/05/20 20:06 Urine Nitrite NEGATIVE (NEGATIVE) 02/05/20 20:06 Urine Bilirubin NEGATIVE (NEGATIVE) 02/05/20 20:06 Urine Urobilinogen 2.0 mg/dL (<2.0) H 02/05/20 20:06 Ur Leukocyte Esterase TRACE (NEGATIVE) H 02/05/20 20:06 Urine Ascorbic Acid NEGATIVE (NEGATIVE) 02/05/20 20:06 Urine Opiates Screen NEGATIVE 02/05/20 20:06 Urine Methadone Screen NEGATIVE 02/05/20 20:06 Ur Barbiturates Screen NEGATIVE 02/05/20 20:06 Ur Phencyclidine Scrn NEGATIVE 02/05/20 20:06 Ur Amphetamines Screen NEGATIVE 02/05/20 20:06 U Benzodiazepines Scrn NEGATIVE 02/05/20 20:06 Urine Cocaine Screen NEGATIVE 02/05/20 20:06 U Marijuana (THC) Screen NEGATIVE 02/05/20 20:06 RPR NONREACTIVE (NONREACTIVE) 02/05/20 22:15 Blood Type A POSITIVE 02/05/20 22:15 Antibody Screen NEGATIVE 02/05/20 22:15
[2020-02-08 12:51] VITALS: BP 139/78
== END 2020-02-08 17:15 | disposition home or self-care (01) | DRG 806 ==
LOC: LC 19:50 → LR 21:51 → 2S 02-06 05:01
PROVIDERS: ADMIT Obstetrics & Gynecology; ATTEND Obstetrics & Gynecology
PROC: 10E0XZZ Delivery of Products of Conception, External Approach (ICD-10-PCS; principal; 2020-02-06)
PROC: 10907ZC Drainage of Amniotic Fluid, Therapeutic from Products of Conception, Via Natural or Artificial Opening (ICD-10-PCS; 2020-02-06)
DX: O10.913 Unspecified pre-existing hypertension complicating pregnancy, third trimester (principal); D62 Acute posthemorrhagic anemia; Z37.0 Single live birth; O90.81 Anemia of the puerperium; I10 Essential (primary) hypertension; Z88.6 Allergy status to analgesic agent; Z87.891 Personal history of nicotine dependence; Z3A.39 39 weeks gestation of pregnancy
CPT/HCPCS: 36415; 80053; 80307; 81005; 83615; 84550; 85025; 85027; 86592; 86850; 86900; 86901; J2590; J3490

== ENCOUNTER 2020-04-08 10:43 | Emergency (ER) | payer MEDICAID ==
[2020-04-08 11:02] VITALS: BP 150/94
[2020-04-08] MEDS ORDERED: KETOROLAC TROMETHAMINE 60 MG/2 ML SDV IM ONE (11:07)
--- NOTE | 2020-04-08 11:12 | ER Document Report ---
ED Extremity Problem, Upper - General Chief Complaint: Shoulder Pain Stated Complaint: LEFT SHOULDER PAIN Time Seen by Provider: 04/08/20 11:07 Notes: CHIEF COMPLAINT: Left trapezius injury HPI: 30-year-old female presenting with left trapezius injury yesterday. Patient was attempting get dressed felt something pull in the left trapezius region has worse pain today with difficulty moving. Took no medications for her symptoms. Denies weakness numbness tingling in the left arm. Denies shoulder pain denies neck pain ROS: See HPI - all other systems were reviewed and are otherwise negative Constitutional: no fever Integumentary: no rash Allergy: no hives Musculoskeletal: + extremity pain or swelling Neurological: no numbness/tingling MEDICATIONS: I agree with the patient medications as charted by the RN. ALLERGIES: I agree with the allergies as charted by the RN. PAST MEDICAL HISTORY/PAST SURGICAL HISTORY: Reviewed and agree as charted by RN. SOCIAL HISTORY: Reviewed and agree as charted by RN. FAMILY HISTORY: No significant familial comorbid conditions directly related to patient complaint EXAM: Reviewed vital signs as charted by RN. CONSTITUTIONAL: Alert and oriented and responds appropriately to questions. Wel l-appearing; well-nourished HEAD: Normocephalic; atraumatic EYES: Conjunctivae clear, sclerae non-icteric ENT: normal nose; no rhinorrhea; moist mucous membranes NECK: Supple without meningismus; non-tender directly over the cervical spine; no cervical lymphadenopathy, no masses. There is tenderness through the left trapezius region with spasm present CARD: symmetric distal pulses RESP: Normal chest excursion without splinting or tachypnea ABD/GI: non-distended BACK: The back appears normal and is non-tender to palpation, there is no CVA tenderness EXT: Some limited abduction of the left arm at the shoulder secondary to pain through the trapezius region; no cyanosis, no effusions, no edema SKIN: Normal color for age and race; warm; dry; good turgor; no acute lesions noted NEURO: Moves all extremities equally; Motor and sensory function intact PSYCH: The patient's mood and manner are appropriate. Grooming and personal hygiene are appropriate. MDM: 30-year-old female injury to the left trapezius region. Will place on anti-inflammatory muscle relaxer orthopedic referral TRAVEL OUTSIDE OF THE [place] IN LAST 30 DAYS: No - Related Data Allergies/Adverse Reactions: hydrocodone bitartrate [From Vicodin] Allergy (Verified 04/08/20 11:05) Past Medical History - Social History Smoking Status: Unknown if Ever Smoked Family History: Arthritis, CVA, DM, Hypertension Renal/ Medical History: Denies: Hx Peritoneal Dialysis Musculoskeletal Medical History: Reports Hx Musculoskeletal Deformity, Reports Hx Musculoskeletal Trauma Skin Medical History: Reports Hx Cellulitis Psychiatric Medical History: Denies: Hx Depression - Immunizations Immunizations up to date: Yes Hx Diphtheria, Pertussis, Tetanus Vaccination: Yes Physical Exam - Vital signs Vitals: Temp Pulse Resp BP Pulse Ox 98.1 F 69 18 150/94 H 100 04/08/20 10:58 04/08/20 10:58 04/08/20 10:58 04/08/20 10:58 04/08/20 10:58 Course - Vital Signs Vital signs: Temp Pulse Resp BP Pulse Ox 98.1 F 69 18 150/94 H 100 04/08/20 10:58 04/08/20 10:58 04/08/20 10:58 04/08/20 10:58 04/08/20 10:58 Discharge - Discharge Clinical Impression: Strain of left trapezius muscle Qualifiers: Encounter type: initial encounter Qualified Code(s): S46.812A - Strain of other muscles, fascia and tendons at shoulder and upper arm level, left arm, initial encounter Condition: Stable Disposition: HOME, SELF-CARE Instructions: Muscle Strain (OM) Additional Instructions: Muscle relaxers. Follow-up with orthopedics for further evaluation and treatment call for appointmentWarm heat to the left trapezius region as much as possible to help with spasm. Medications as prescribed no driving on Muscle relaxers. Follow-up with orthopedics for further evaluation and treatment call for appointment Prescriptions: Cyclobenzaprine HCl [Flexeril 10 mg Tablet] 10 mg PO TIDP PRN #15 tab PRN Reason: Diclofenac Sodium [Voltaren 50 Mg Tablet.] 50 mg PO BID #20 tablet. Referrals: AJ SCHULZ MD [ACTIVE STAFF] - Follow up as needed
== END 2020-04-08 11:18 | disposition home or self-care (01) ==
LOC: ER 10:43
DX: S46.812A Strain of other muscles, fascia and tendons at shoulder and upper arm level, left arm, initial encounter (principal); X50.0XXA Overexertion from strenuous movement or load, initial encounter
CPT/HCPCS: 99284; 96372; J1885